=== PATIENT | male | born 1960 | race Caucasian/White ===

== ENCOUNTER 2017-08-17 13:53 | Emergency (ER) | payer MEDICARE ==
[~2017-08-17] VITALS: Ht 167.6 cm; Wt 115.7 kg
[~2017-08-17 13:53] MED LIST: LISINOPRIL 20 MG TABLET PO ONE
--- NOTE | 2017-08-17 14:15 | PHYS DOC ---
Adult General Chief Complaint Chief Complaint: Neck Pain [facility] HPI 57-year-old male presents with neck pain that radiates down to his chest. The patient has had intermittent neck pain, left shoulder "tingling" for the last week and a half. The patient thought it might be starting up in his jaw where he has known bad teeth. He went to his dentist today. His dentist was concerned his blood pressure is very high and the symptoms sound concerning so he sent him to the ED. Patient states some upper left chest discomfort, but does not describe it as heaviness or pain. He denies shortness of breath or diaphoresis. He has no known cardiac history. He does know that he has high blood pressure but has not been on medication "for years". He denies any recent trauma to the neck or left arm. Review of Systems Review of Systems Constitutional: Denies fever or chills [] Eyes: Denies change in visual acuity, redness, or eye pain [] HENT: Has "sore" teeth that need removed on the left [] Respiratory: Denies cough or shortness of breath [] Cardiovascular: No additional information not addressed in HPI [] GI: Denies abdominal pain, nausea, vomiting, bloody stools or diarrhea [] : Denies dysuria or hematuria [] Musculoskeletal: Denies back pain or joint pain [] Integument: Denies rash or skin lesions [] Neurologic: Denies headache, focal weakness or sensory changes [] Endocrine: Denies polyuria or polydipsia [] All other systems were reviewed and found to be within normal limits, except as documented in this note. Physical Exam Physical Exam Constitutional: Well developed, well nourished, no acute distress, non-toxic appearance. [] HENT: Normocephalic, atraumatic, bilateral external ears normal, oropharynx moist, several upper left teeth with decay, several molars removed in all four quadrants [] Eyes: PERRLA, EOMI, conjunctiva normal, no discharge. [] Neck: Normal range of motion, muscle spasm of the paracervical muscles, worse on left. [] Cardiovascular:Heart rate regular rhythm, no murmur [] Lungs & Thorax: Bilateral breath sounds clear to auscultation [] Abdomen: Bowel sounds normal, soft, no tenderness, no masses, no pulsatile masses. [] Skin: Warm, dry, no erythema, no rash. [] Back: No tenderness, no CVA tenderness. [] Extremities: No tenderness, no cyanosis, no clubbing, ROM intact, no edema. [] Neurologic: Alert and oriented X 3, normal motor function, normal sensory function, no focal deficits noted. [] Psychologic: Affect normal, judgement normal, mood normal. [] EKG EKG [] Radiology/Procedures Radiology/Procedures C-SPINE 2 OR 3 VIEWS Clinical Indication: NECK PAIN Comparison: None. Findings: The cervical spine is visualized to the level of C7 on lateral view. There is mild grade 1 anterolisthesis of C4 on C5. The alignment is otherwise maintained. There is degenerative endplate spurring and disc space narrowing of C6/C7. Facet joints are intact, mildly hypertrophic. Straightening of normal cervical lordosis may be positional or due to muscle spasm. There is no evidence of acute fracture. The lateral masses are symmetric. No prevertebral soft tissue swelling is identified. Visualized lung apices are clear. IMPRESSION: No acute fracture or malalignment. Electronically signed by: Jorge Alberto Mesa MD (08/17/2017 4:27 PM) [id number] [] INDICATION: Chest pain. TECHNIQUE: Two-view chest radiograph was obtained. Comparison is not available. FINDINGS: The lungs are clear. There is no pleural effusion. The heart is not enlarged and there is no heart failure. There are mild degenerative changes in the spine. IMPRESSION: No acute thoracic findings. Electronically signed by: To Coreas MD (08/17/2017 3:57 PM) Course & Med Decision Making Course & Med Decision Making Pertinent Labs and Imaging studies reviewed. (See chart for details) The patients pain does not appear to be cardiac. His cervical spine does have degeneration and he may be having nerve impingement and muscle spasm causing the neck and shoulder pain. I will place him on muscle relaxer and advised to follow-up with his PCP for blood pressure medication. The patient's labs were remarkable for a significantly elevated blood sugar over 400. His anion gap was normal. The patient has not been diagnosed as diabetic previously. I have advised that he see his PCP immediately about this as well. I will start him on Metformin in the ED. Given his high blood pressure, we gave the patient metoprolol 5mg IV as well as starting him on Lisinopril 20 mg oral. This improved his blood pressure slightly. He is asymptomatic with this blood pressure. I again stressed the importance of follow-up with his PCP this week. Patient stated he will make the appointment tomorrow. [] [place] Disclaimer Dragon Disclaimer This electronic medical record was generated, in whole or in part, using a voice recognition dictation system. Departure Departure: Referrals: PCP,STEPHON (PCP) Scripts Lisinopril (LISINOPRIL) 20 Mg Tablet 1 TAB PO DAILY, #30 TAB 5 Refills Prov: PRASHANTH MONTE DO 08/17/17 Metformin Hcl (METFORMIN HCL) 1,000 Mg Tablet 1 TAB PO BID, #60 TAB 5 Refills Prov: PRASHANTH MONTE DO 08/17/17 PRASHANTH MONTE DO August 17, 2017 14:15
[2017-08-17 14:23] LABS: BASO # 0.1 x10^3/uL (0.0-0.2); BASO % 1 % (0-3); EOS # 0.3 x10^3/uL (0.0-0.7); EOS % 3 % (0-3); HEMOGLOBIN 15.2 g/dL (13.0-17.5); LYMPH # 3.3 x10^3/uL (1.0-4.8); LYMPH % 32 % (24-48); MEAN CORPUSCULAR HEMOGLOBIN 29 pg (25-35); MEAN CORPUSCULAR HGB CONC 35 g/dL (31-37); MEAN CORPUSCULAR VOLUME 84 fL (79-100); MONO # 0.5 x10^3/uL (0.0-1.1); MONO % 5 % (0-9); NEUT # 5.8 x10^3uL (1.8-7.7); NEUT % 58 % (31-73); PLATELET COUNT 168 x10^3/uL (140-400); RED BLOOD COUNT 5.26 x10^6/uL (4.30-5.70); RED CELL DISTRIBUTION WIDTH 13.7 % (11.5-14.5); WHITE BLOOD COUNT 10.1 x10^3/uL (4.0-11.0)
[2017-08-17 14:37] LABS: BACTERIA,URINE 0 /HPF (0-FEW); BILIRUBIN,URINE NEG (NEG); CLARITY,URINE CLEAR; COLOR,URINE YELLOW; GLUCOSE,URINE 500 mg/dL (NEG); NITRITE,URINE NEG (NEG); RBC,URINE OCC /HPF (0-2); SQUAMOUS EPITHELIAL CELL,UR FEW /LPF; UROBILINOGEN,URINE 0.2 mg/dL (0.2 mg/dL); WBC,URINE OCC /HPF (0-4)
[2017-08-17 14:37] LABS: ALBUMIN 3.3 g/dL (3.4-5.0); ALBUMIN/GLOBULIN RATIO 0.8 (1.0-1.7); CALCIUM 8.5 mg/dL (8.5-10.1); CREATININE 1.2 mg/dL (0.7-1.3); POTASSIUM 4.1 mmol/L (3.5-5.1); TOTAL BILIRUBIN 0.6 mg/dL (0.2-1.0); TOTAL PROTEIN 7.7 g/dL (6.4-8.2)
--- NOTE | 2017-08-17 15:37 | EKG ---
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
[2017-08-17] MEDS ORDERED: IV NORMAL SALINE 1,000ML 1,000 ML IV ONE (16:00)
--- NOTE | 2017-08-17 16:00 | RAD ---
INDICATION: Chest pain. TECHNIQUE: Two-view chest radiograph was obtained. Comparison is not available. FINDINGS: The lungs are clear. There is no pleural effusion. The heart is not enlarged and there is no heart failure. There are mild degenerative changes in the spine. IMPRESSION: No acute thoracic findings. Electronically signed by: To Coreas MD (08/17/2017 3:57 PM) [id number]
--- NOTE | 2017-08-17 16:30 | RAD ---
C-SPINE 2 OR 3 VIEWS Clinical Indication: NECK PAIN Comparison: None. Findings: The cervical spine is visualized to the level of C7 on lateral view. There is mild grade 1 anterolisthesis of C4 on C5. The alignment is otherwise maintained. There is degenerative endplate spurring and disc space narrowing of C6/C7. Facet joints are intact, mildly hypertrophic. Straightening of normal cervical lordosis may be positional or due to muscle spasm. There is no evidence of acute fracture. The lateral masses are symmetric. No prevertebral soft tissue swelling is identified. Visualized lung apices are clear. IMPRESSION: No acute fracture or malalignment. Electronically signed by: Jorge Alberto Mesa MD (08/17/2017 4:27 PM) [id number]
[2017-08-17] MEDS ORDERED: METF10003 PO (17:55)
[2017-08-17] MEDS ORDERED: LISI-334 PO (17:55)
[2017-08-17] MEDS ORDERED: METOPROLOL TARTRATE 5 MG/5 ML VIAL. IV ONE (18:00)
[2017-08-17] MEDS ORDERED: metFORMIN 500 MG TABLET PO ONE (18:00)
[2017-08-17 19:15] VITALS: BP 177/108
== END 2017-08-17 19:21 | disposition home or self-care (01) ==
LOC: ER 13:53
DX: M54.2 Cervicalgia (principal); M25.512 Pain in left shoulder; R07.89 Other chest pain; R20.2 Paresthesia of skin
CPT/HCPCS: 36415; 71046; 72040; 80053; 81001; 84484; 85025; 93005; 96374; 99285; J3490; J7030

== ENCOUNTER 2017-10-25 01:13 | Emergency (ER) | payer MEDICARE ==
[~2017-10-25] VITALS: Ht 167.6 cm; Wt 115.7 kg
[~2017-10-25 01:13] MED LIST changes: +LISI-334 PO; -LISINOPRIL 20 MG TABLET PO ONE; +METF10003 PO
[2017-10-25 01:15] VITALS: BP 158/96
--- NOTE | 2017-10-25 01:17 | ED.ADGEN ---
Past History Past Medical History: Anxiety, Depression, Hypertension Past Surgical History: Cholecystectomy, Other Alcohol Use: Sober Drug Use: None Adult General Chief Complaint Chief Complaint "... I got this hair cut the other day... and couple days after I noticed I had a sore spot... and then it started getting more sore.. and draining...".." HPI HPI Patient is a 57 year old male who presents with above hx and complaints Cellulitis posterior Lt. side scalp. Central area 2 cm with drainage. Does have surrounding erythema and nuchal line adenopathy . Patient states his sugars have been somewhat elevated. Patient did eat just before he came in place expect sugars to be hive recheck it. Patient has been compliant with his diabetic meds. No recent travel. No specific ill contacts. Patient does not remember when his last tetanus was done. Patient normally follows with Dr. Bower. Review of Systems Review of Systems Constitutional: Denies fever or chills [] Eyes: Denies change in visual acuity, redness, or eye pain [] HENT: Denies nasal congestion or sore throat [] Respiratory: Denies cough or shortness of breath [] Cardiovascular: No additional information not addressed in HPI [] GI: Denies abdominal pain, nausea, vomiting, bloody stools or diarrhea [] : Denies dysuria or hematuria [] Musculoskeletal: Denies back pain or joint pain [] Integument: Denies rash or skin lesions []complaints of cellulitis on scalp as per history of present illness Neurologic: Denies headache, focal weakness or sensory changes [] Endocrine: Denies polyuria or polydipsia [] All other systems were reviewed and found to be within normal limits, except as documented in this note. Family History Family History Noncontributory Current Medications Current Medications Current Medications Medications (Trade) Dose Ordered Sig/[facility] Start Time Stop Time Status Last Admin Dose Admin Ceftriaxone Sodium (Rocephin Im) 1 gm 1X ONCE 10/25/17 01:45 10/25/17 01:46 DC 10/25/17 01:45 1 GM Ceftriaxone Sodium (Rocephin) 1 gm STK-MED ONCE 10/25/17 01:39 10/25/17 01:40 DC Tetanus/ Diphtheria Toxoids Adsorbed (Tenivac Vial) 0.5 ml STK-MED ONCE 10/25/17 01:39 10/25/17 01:40 DC Trimethoprim/ Sulfamethoxazole (Bactrim Ds) 1 tab STK-MED ONCE 10/25/17 01:39 10/25/17 01:40 DC Allergies Allergies Allergies Coded Allergies Type Severity Reaction Last Updated Verified No Known Drug Allergies 10/25/17 No Physical Exam Physical Exam Constitutional: Mild distress, non-toxic appearance. [] HENT: Normocephalic, atraumatic, bilateral external ears normal, oropharynx moist, no oral exudates, nose normal. Area of cellulitis left posterior scalp as per history of present illness Eyes: PERRLA, EOMI, conjunctiva normal, no discharge. [] Glasses Neck: Normal range of motion, no tenderness, supple, no stridor. [] Cardiovascular:Heart rate regular rhythm, no murmur [] Lungs & Thorax: Bilateral breath sounds equal apexes and a few scattered wheezes on auscultation [] Abdomen: Bowel sounds normal, soft, no tenderness, no masses, no pulsatile masses. Obese. Old surgical scar. Skin: Warm, dry, no erythema, no rash. [] Back: No tenderness, no CVA tenderness. [] Extremities: No tenderness, no cyanosis, no clubbing, ROM intact, no edema. [] Neurologic: Alert and oriented X 3, normal motor function, normal sensory function, no focal deficits noted. [] Psychologic: Affect anxious., judgement normal, mood normal. [] Current Patient Data Vital Signs Vital Signs Date Time Temp Pulse Resp B/P (MAP) Pulse Ox O2 Delivery O2 Flow Rate FiO2 10/25/17 01:15 97.7 64 20 96 Room Air EKG EKG [] Radiology/Procedures Radiology/Procedures [] Course & Med Decision Making Course & Med Decision Making Pertinent Labs and Imaging studies reviewed. (See chart for details). She wore scalp 4 times a day as soap and water. Apply Polysporin and massage into the area cellulitis 4 times a day. Patient to take Bactrim DS twice day for 7 days. Patient follow-up primary care. Patient monitor closely his glucose levels. Patient return of any concerns. [] Final Impression Final Impression 1. Cellulitis 2. Diabetes 3. HTN[] Dragon Disclaimer Dragon Disclaimer This electronic medical record was generated, in whole or in part, using a voice recognition dictation system. THA CASILLAS MD Oct 25, 2017 01:17
[2017-10-25] MEDS ORDERED: SULF1TAB24 PO (01:32)
[2017-10-25] MEDS ORDERED: cefTRIAXone SODIUM 1 GM VIAL IV ONE (01:39)
[2017-10-25] MEDS ORDERED: SMZ/TMP 800/160MG TABLET. PO ONE ×2 (01:39→01:45)
[2017-10-25] MEDS ORDERED: TETANUS AND DIPHTHERIA TOX/PF 0.5 ML VIAL. VAX IM ONE ×2 (01:39→01:45)
[2017-10-25] MEDS ORDERED: cefTRIAXone IM 1 GM VIAL IM ONE (01:45)
== END 2017-10-25 02:05 | disposition home or self-care (01) ==
LOC: ER 01:13
DX: L03.811 Cellulitis of head [any part, except face] (principal); E11.9 Type 2 diabetes mellitus without complications; I10 Essential (primary) hypertension; F41.9 Anxiety disorder, unspecified; F32.9 Major depressive disorder, single episode, unspecified
CPT/HCPCS: 90471; 90714; 96372; 99284; J0696

== ENCOUNTER 2018-07-07 13:29 | Inpatient (IN) | payer MEDICARE, OTHER ==
[~2018-07-07] VITALS: Ht 167.6 cm; Wt 104.0 kg
[~2018-07-07 13:29] MED LIST changes: -METF10003 PO; +METF10007 PO; +SULF1TAB24 PO
[2018-07-07] MEDS ORDERED: IV NORMAL SALINE 1,000ML 1,000 ML IV SCH (13:48)
[2018-07-07 13:58] LABS: BASO % 0 % (0-3); EOS # 0.2 x10^3/uL (0.0-0.7); EOS % 2 % (0-3); HEMATOCRIT 47.4 % (39.0-53.0); HEMOGLOBIN 16.6 g/dL (13.0-17.5); LYMPH # 3.4 x10^3/uL (1.0-4.8); LYMPH % 34 % (24-48); MEAN CORPUSCULAR HEMOGLOBIN 29 pg (25-35); MEAN CORPUSCULAR HGB CONC 35 g/dL (31-37); MEAN CORPUSCULAR VOLUME 82 fL (79-100); MONO # 0.5 x10^3/uL (0.0-1.1); MONO % 5 % (0-9); NEUT % 59 % (31-73); PLATELET COUNT 204 x10^3/uL (140-400); RED BLOOD COUNT 5.78 x10^6/uL (4.30-5.70); RED CELL DISTRIBUTION WIDTH 13.2 % (11.5-14.5); WHITE BLOOD COUNT 10.2 x10^3/uL (4.0-11.0)
--- NOTE | 2018-07-07 14:04 | PHYS DOC ---
Past History Past Medical History: Arthritis, Diabetes, DVT, Gallstones, High Cholesterol, Hypertension, Other Past Surgical History: Cholecystectomy, Tonsillectomy, Other Alcohol Use: None Drug Use: None Adult General Chief Complaint Chief Complaint: DIZZY/LIGHT HEADED HPI HPI Patient is a 58 year old male who presents with complaint of dizziness. Patient states the symptoms started 2 days ago. Patient states that he has been having recurrent episodes of feeling dizzy and unstable on his feet. He started having a worsening episode today while working on his friend's car. States that yesterday he also had associated chest pain with this dizziness but denies chest pain currently. History of hypertension and Type 2 diabetes mellitus. No previous known history of coronary artery disease. No recent stress testing. Has had mild shortness of breath but no shortness breath currently. No known sick contacts. No fever. Has not taken any medications. States that his blood sugars have been consistently running about 300 over the past several weeks. Review of Systems Review of Systems Constitutional: Denies fever or chills [] Eyes: Denies change in visual acuity, redness, or eye pain [] HENT: Denies nasal congestion or sore throat [] Respiratory: Occasional shortness of breath, denies cough[] Cardiovascular: Chest pain yesterday, denies edema[] GI: Denies abdominal pain, nausea, vomiting, bloody stools or diarrhea [] : Denies dysuria or hematuria [] Musculoskeletal: Chronic neck pain[] Integument: Denies rash or skin lesions [] Neurologic: Dizziness, denies focal weakness or sensory changes [] All other systems were reviewed and found to be within normal limits, except as documented in this note. Current Medications Current Medications Current Medications Medications (Trade) Dose Ordered Sig/[facility] Start Time Stop Time Status Last Admin Dose Admin Sodium Chloride 1,000 ml @ 1,000 mls/hr Q1H 07/07/18 13:48 07/07/18 14:47 Allergies Allergies Allergies Coded Allergies Type Severity Reaction Last Updated Verified No Known Drug Allergies 10/25/17 No Physical Exam Physical Exam Constitutional: Alert, afebrile, no acute distress. [] HENT: Normocephalic, atraumatic, bilateral external ears normal, oropharynx moist, no oral exudates, nose normal. [] Eyes: PERRLA, EOMI, conjunctiva normal, no discharge. [] Neck: Normal range of motion, no tenderness, supple, no stridor. [] Cardiovascular: Tachycardia, regular rhythm, no murmur [] Lungs & Thorax: Bilateral breath sounds clear to auscultation [] Abdomen: Bowel sounds normal, soft, no tenderness, no masses, no pulsatile masses. [] Skin: Warm, dry, no erythema, no rash. [] Back: No tenderness, no CVA tenderness. [] Extremities: No tenderness, no cyanosis, no clubbing, ROM intact, no edema. [] Neurologic: Alert and oriented X 3, normal motor function, normal sensory function, no focal deficits noted. [] Current Patient Data Vital Signs Vital Signs Date Time Temp Pulse Resp B/P (MAP) Pulse Ox O2 Delivery O2 Flow Rate FiO2 07/07/18 13:32 98.2 90 18 97 Room Air Lab Results Laboratory Tests Test 07/07/18 13:38 Glucose (Fingerstick) 311 mg/dL (70-99) H EKG EKG Interpreted by me: Heart rate 88, sinus rhythm, normal intervals, leftward axis , no acute ST/T-wave abnormalities present[] Radiology/Procedures Radiology/[place] [address] IMAGING REPORT Signed PATIENT: GILMAR SAUCEDO ACCOUNT: [id number] : 1960 LOCATION: ER AGE: 58 SEX: M EXAM STATUS: REG ER ORD. PHYSICIAN: VERONIQUE ASIF MD REASON: dizziness PROCEDURE: CT HEAD WO CONTRAST Examination: CT HEAD WO CONTRAST History: DIZZINESS Comparison/Correlation: None Findings: Axial images of the head were obtained without contrast. Atrophy is present. No intracranial hemorrhage, midline shift, or mass effect. Globes and optic nerves are unremarkable. Ventricles are normal size. Bony structures are unremarkable. Impression: Atrophy. No acute process. PQRS Compliance Statement: One or more of the following individualized dose reduction techniques were utilized for this examination: 1. Automated exposure control 2. Adjustment of the mA and/or kV according to patient size 3. Use of iterative reconstruction technique Electronically signed by: Tristan Gonsalez MD (07/07/2018 2:13 PM) [facility] DICTATED AND SIGNED BY: TRISTAN GONSALEZ MD DATE: 07/07/181412 CC: VERONIQUE ASIF MD; FABIOLA HERNANDEZ ~ [address] [address] IMAGING REPORT Signed PATIENT: GILMAR SAUCEDO ACCOUNT: [id number] : 1960 LOCATION: ER AGE: 58 SEX: M EXAM STATUS: REG ER ORD. PHYSICIAN: VERONIQUE ASIF MD REASON: dizziness, chest pain PROCEDURE: PORTABLE CHEST 1V PORTABLE CHEST 1V Clinical indications: DIZZINESS and chest pain COMPARISON: August 17, 2017. Findings: No acute lung infiltrate or pleural effusion or pulmonary edema or lung mass or pneumothorax is seen. The heart size, pulmonary vasculature, mediastinum and both elle are unremarkable. Impression: No acute radiographic abnormality is seen. Electronically signed by: Omar Rees MD (07/07/2018 2:16 PM) [facility] DICTATED AND SIGNED BY: OMAR REES MD DATE: 07/07/181415 CC: VERONIQUE ASIF MD; FABIOLA HERNANDEZ ~ [] Course & Med Decision Making Course & Med Decision Making Pertinent Labs and Imaging studies reviewed. (See chart for details) Patient treated with IV fluids in the emergency department. Blood work shows elevated blood sugar. Initial cardiac enzymes negative. Given patient's age and symptoms of near syncope with associated chest pain, the patient will need admission to the hospital for further monitoring and cardiac evaluation. I spoke with Dr. Tomlinson who accepted care of patient in hospital. Dragon Disclaimer Dragon Disclaimer This electronic medical record was generated, in whole or in part, using a voice recognition dictation system. Departure Departure: Impression: Primary Impression: Near syncope Additional Impressions: Chest pain Hypertension Type 2 diabetes mellitus Disposition: ADMITTED INPATIENT Admitting Physician: Avel Tomlinson Condition: STABLE Referrals: FABIOLA HERNANDEZ (PCP) Problem Qualifiers Additional Impressions: Chest pain Chest pain type: unspecified Qualified Codes: R07.9 - Chest pain, unspecified Hypertension Hypertension type: essential hypertension Qualified Codes: I10 - Essential ( primary) hypertension Type 2 diabetes mellitus Diabetes mellitus skilled nursing insulin use: unspecified terminal superintendent insulin use status Diabetes mellitus complication status: with hyperglycemia Qualified Codes: E11.65 - Type 2 diabetes mellitus with hyperglycemia VERONIQUE ASIF MD Jul 07, 2018 14:04
--- NOTE | 2018-07-07 14:16 | RAD ---
Examination: CT HEAD WO CONTRAST History: DIZZINESS Comparison/Correlation: None Findings: Axial images of the head were obtained without contrast. Atrophy is present. No intracranial hemorrhage, midline shift, or mass effect. Globes and optic nerves are unremarkable. Ventricles are normal size. Bony structures are unremarkable. Impression: Atrophy. No acute process. PQRS Compliance Statement: One or more of the following individualized dose reduction techniques were utilized for this examination: 1. Automated exposure control 2. Adjustment of the mA and/or kV according to patient size 3. Use of iterative reconstruction technique Electronically signed by: Tristan Pappas MD (07/07/2018 2:13 PM) [facility]
--- NOTE | 2018-07-07 14:19 | RAD ---
PORTABLE CHEST 1V Clinical indications: DIZZINESS and chest pain COMPARISON: August 17, 2017. Findings: No acute lung infiltrate or pleural effusion or pulmonary edema or lung mass or pneumothorax is seen. The heart size, pulmonary vasculature, mediastinum and both elle are unremarkable. Impression: No acute radiographic abnormality is seen. Electronically signed by: Miguel Rees MD (07/07/2018 2:16 PM) [facility]
[2018-07-07 14:28] LABS: ALBUMIN 3.7 g/dL (3.4-5.0); ALBUMIN/GLOBULIN RATIO 0.8 (1.0-1.7); CALCIUM 9.2 mg/dL (8.5-10.1); CREATININE 1.2 mg/dL (0.7-1.3); GFR 61.8; MAGNESIUM 1.7 mg/dL (1.8-2.4); POTASSIUM 3.9 mmol/L (3.5-5.1); TOTAL BILIRUBIN 0.9 mg/dL (0.2-1.0); TOTAL PROTEIN 8.6 g/dL (6.4-8.2)
[2018-07-07 14:48] LABS: BACTERIA,URINE FEW /HPF (0-FEW); BILIRUBIN,URINE NEG (NEG); CLARITY,URINE HAZY; COLOR,URINE AMBER; GLUCOSE,URINE >=1000 mg/dL (NEG); NITRITE,URINE NEG (NEG); RBC,URINE 0 /HPF (0-2); UROBILINOGEN,URINE 1 mg/dL (0.2 mg/dL); WBC,URINE OCC /HPF (0-4)
[2018-07-07 14:49] LABS: SQUAMOUS EPITHELIAL CELL,UR FEW /LPF
[2018-07-07] MEDS ORDERED: ONDANSETRON PF 4 MG/2 ML VIAL. IV PRN (15:30)
[2018-07-07 17:30] VITALS: BP 157/96
[2018-07-07] MEDS ORDERED: LISI40TA PO (17:42)
[2018-07-07] MEDS ORDERED: DEXTROSE 50% 25 GM / 50ML DISP.SYRIN. IV PRN (17:45)
--- NOTE | 2018-07-07 18:08 | CONS ---
DATE OF CONSULTATION: 07/07/2018 REASON FOR CONSULTATION: Near syncope and chest pain. HISTORY OF PRESENT ILLNESS: The patient is a pleasant 58-year-old man with a past medical history of hypertension, diabetes and bipolar disorder, who apparently was in usual state of health up until about a week ago and he has had progressive increasing lightheadedness and dizziness. He had 1 or 2 episodes of chest pain associated with this. Denies any dyspnea, true syncope, orthopnea, PND or lower extremity edema. No nausea, vomiting, diarrhea, fevers or chills. He denies any recent medication changes. No other issues at home, otherwise with activity. No prior cardiac testing is notable. Upon arrival to the ER, he was noted to have a normal EKG and blood sugar was slightly elevated and in this setting was admitted for further evaluation and treatment. He reports compliance with his medications; otherwise. PAST MEDICAL HISTORY: As noted above. SOCIAL HISTORY: No tobacco or drug use. He used to work at the [employer]. He lives with his son. He occasionally drinks alcohol. FAMILY HISTORY: Noncontributory. ALLERGIES: No known drug allergies. CURRENT CARDIOVASCULAR MEDICATIONS: Lisinopril 20 mg daily. PHYSICAL EXAMINATION: VITAL SIGNS: Afebrile, 79, 18, 168/94, 97% on room air. GENERAL: He is alert and oriented, no acute distress. HEAD AND NECK: Unremarkable. CARDIAC: Regular rate and rhythm without any murmurs, rubs or gallops. LUNGS: Clear to auscultation bilaterally. ABDOMEN: Soft, nontender, nondistended, obese. NEUROLOGIC: No focal deficits. MUSCULOSKELETAL: No trauma. EXTREMITIES: No clubbing, cyanosis or edema. 2+ radial and dorsalis pedis pulses. DIAGNOSTIC STUDIES: Hemoglobin, platelets, creatinine and initial cardiac enzymes are negative. Glucose is elevated at 311. Chest x-ray and head CT are unremarkable. EKG is per report grossly unremarkable. Not available for review at this time. IMPRESSION: 1. Lightheadedness in the setting of a long-term history of diabetes and elevated blood sugars with possible dehydration, differential diagnosis also includes arrhythmias. 2. Chest pain appears to be atypical, but given his risk factors, cannot rule out a significant coronary artery disease, although less likely based on negative cardiac biomarkers and EKG. RECOMMENDATIONS: Continue serial enzymes and obtain a monitoring overnight. If no acute events can be safely discharged tomorrow on Imdur therapy and aspirin as well as a low dose statin along with his LILO inhibitor, we will plan for outpatient stress testing. Thank you for this consultation. YONATHAN DILL MD DR: ELENA/juma JOB#: [id number] / [id number]
[2018-07-07] MEDS: IV NORMAL SALINE 1,000ML 1,000 ML IV SCH (18:13)
[2018-07-07 19:33] VITALS: BP 131/83
[2018-07-07] MEDS: ACETAMINOPHEN 325 MG TABLET PO PRN (19:49)
[2018-07-07 22:53] VITALS: BP 143/89
[2018-07-08] MEDS: IV NORMAL SALINE 1,000ML 1,000 ML IV SCH ×2 (02:13→08:20)
[2018-07-08 05:53] VITALS: BP 144/93
[2018-07-08] MEDS: ACETAMINOPHEN 325 MG TABLET PO PRN (05:58)
[2018-07-08 06:15] LABS: BASO # 0.1 x10^3/uL (0.0-0.2); BASO % 1 % (0-3); EOS # 0.2 x10^3/uL (0.0-0.7); EOS % 3 % (0-3); HEMATOCRIT 41.6 % (39.0-53.0); HEMOGLOBIN 14.4 g/dL (13.0-17.5); LYMPH # 3.1 x10^3/uL (1.0-4.8); LYMPH % 41 % (24-48); MEAN CORPUSCULAR HEMOGLOBIN 29 pg (25-35); MEAN CORPUSCULAR HGB CONC 35 g/dL (31-37); MEAN CORPUSCULAR VOLUME 83 fL (79-100); MONO # 0.4 x10^3/uL (0.0-1.1); MONO % 6 % (0-9); NEUT # 3.6 x10^3uL (1.8-7.7); NEUT % 49 % (31-73); PLATELET COUNT 158 x10^3/uL (140-400); RED BLOOD COUNT 4.99 x10^6/uL (4.30-5.70); RED CELL DISTRIBUTION WIDTH 12.8 % (11.5-14.5); WHITE BLOOD COUNT 7.4 x10^3/uL (4.0-11.0)
[2018-07-08 06:23] LABS: CALCIUM 8.2 mg/dL (8.5-10.1); CREATININE 0.9 mg/dL (0.7-1.3); GFR 86.1
--- NOTE | 2018-07-08 06:59 | EKG ---
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
[2018-07-08] MEDS: INSULIN LISPRO 300 UNITS/3 ML INSULN.PEN. SQ SCH ×2 (08:23→12:07)
--- NOTE | 2018-07-08 08:40 | RAD ---
EXAMINATION: VENOUS LOWER EXTREMITY LEFT HISTORY: COMPARISON/CORRELATION: None FINDINGS: Left lower extremity duplex venous ultrasound exam was performed. Right common femoral vein was also imaged. Grayscale, color Doppler, and spectral Doppler imaging was performed. Compression and augmentation was performed. The left common femoral vein, superficial femoral vein, popliteal vein, and greater saphenous vein are normal with no evidence of deep venous thrombus. Normal compressibility and augmentation is evident. Right common femoral vein is unremarkable. IMPRESSION: Normal left lower extremity duplex ultrasound exam. Electronically signed by: Tristan Pappas MD (07/08/2018 8:37 AM) [facility]
[2018-07-08] MEDS ORDERED: LISINOPRIL 20 MG TABLET PO SCH (09:00)
--- NOTE | 2018-07-08 09:19 | PDOC ---
PROGRESS NOTES Diagnosis Problem Problems Medical Problems: (1) Chest pain Status: Acute (2) Hypertension Status: Acute (3) Near syncope Status: Acute (4) Type 2 diabetes mellitus Status: Acute Assessment Problems Medical Problems: (1) Chest pain Status: Acute (2) Hypertension Status: Acute (3) Near syncope Status: Acute (4) Type 2 diabetes mellitus Status: Acute 1. Lightheadedness - no arrhythmias. 2. Chest pain -atypical. NM ruled out. continue lisinopril. add daily aspirin , statin and imdur and plan for outpatient MPI. 3. hypertension - continue ACEI, add nitrate, monitor outpatient 4. diabetes mellitus - per pcp Chest pain, mi ruled out. plan for OP MPI Subjective no new complaints. Feels "great", "ready to go home" Objective Vital Signs Date Time Temp Pulse Resp B/P (MAP) Pulse Ox O2 Delivery O2 Flow Rate FiO2 07/08/18 08:19 66 144/93 07/08/18 08:00 Room Air 07/08/18 05:53 97.5 20 93 Intake and Output 07/08/18 07:00 Intake Total 3253 ml Balance 3253 ml Intake Oral 720 ml IV Total 2533 ml # Voids 2 Physical Exam gen: A+O, NAD CV: RRR, No S3S4 Lungs: clear Abd: +bowel sounds Ext: no edema, +pulses Review of Relevant I have reviewed the following items ayaka (where applicable) has been applied. Labs Laboratory Tests Test 07/07/18 13:38 07/07/18 13:42 07/07/18 14:20 07/07/18 17:50 Glucose (Fingerstick) 311 mg/dL (70-99) White Blood Count 10.2 x10^3/uL (4.0-11.0) Red Blood Count 5.78 x10^6/uL (4.30-5.70) Hemoglobin 16.6 g/dL (13.0-17.5) Hematocrit 47.4 % (39.0-53.0) Mean Corpuscular Volume 82 fL (79-100) Mean Corpuscular Hemoglobin 29 pg (25-35) Mean Corpuscular Hemoglobin Concent 35 g/dL (31-37) Red Cell Distribution Width 13.2 % (11.5-14.5) Platelet Count 204 x10^3/uL (140-400) Neutrophils (%) (Auto) 59 % (31-73) Lymphocytes (%) (Auto) 34 % (24-48) Monocytes (%) (Auto) 5 % (0-9) Eosinophils (%) (Auto) 2 % (0-3) Basophils (%) (Auto) 0 % (0-3) Neutrophils # (Auto) 6.0 x10^3uL (1.8-7.7) Lymphocytes # (Auto) 3.4 x10^3/uL (1.0-4.8) Monocytes # (Auto) 0.5 x10^3/uL (0.0-1.1) Eosinophils # (Auto) 0.2 x10^3/uL (0.0-0.7) Basophils # (Auto) 0.0 x10^3/uL (0.0-0.2) Sodium Level 135 mmol/L (136-145) Potassium Level 3.9 mmol/L (3.5-5.1) Chloride Level 100 mmol/L (98-107) Carbon Dioxide Level 24 mmol/L (21-32) Anion Gap 11 (6-14) Blood Urea Nitrogen 22 mg/dL (8-26) Creatinine 1.2 mg/dL (0.7-1.3) Estimated GFR (Cockcroft-Gault) 61.8 BUN/Creatinine Ratio 18 (6-20) Glucose Level 331 mg/dL (70-99) Calcium Level 9.2 mg/dL (8.5-10.1) Magnesium Level 1.7 mg/dL (1.8-2.4) Total Bilirubin 0.9 mg/dL (0.2-1.0) Aspartate Amino Transf (AST/SGOT) 33 U/L (15-37) Alanine Aminotransferase (ALT/SGPT) 59 U/L (16-63) Alkaline Phosphatase 83 U/L (46-116) Creatine Kinase 47 U/L (39-308) Creatine Kinase MB (Mass) 0.7 ng/mL (0.0-3.6) Creatine Kinase MB Relative Index 1.5 % (0-4) Troponin I Quantitative < 0.017 ng/mL (0-0.055) LD-Ile-I-Type Natriuretic Peptide 48 pg/mL (0-124) Total Protein 8.6 g/dL (6.4-8.2) Albumin 3.7 g/dL (3.4-5.0) Albumin/Globulin Ratio 0.8 (1.0-1.7) Urine Collection Type Unknown Urine Color [place] Urine Clarity Hazy Urine pH 5.0 Urine Specific Eldred 1.025 Urine Protein 100 mg/dl (NEG-TRACE) Urine Glucose (UA) >=1000 mg/dL (NEG) Urine Ketones (Stick) Trace mg/dL (NEG) Urine Blood Neg (NEG) Urine Nitrite Neg (NEG) Urine Bilirubin Neg (NEG) Urine Urobilinogen Dipstick 1 mg/dL (0.2 mg/dL) Urine Leukocyte Esterase Neg (NEG) Urine RBC 0 /HPF (0-2) Urine WBC Occ /HPF (0-4) Urine Squamous Epithelial Cells Few /LPF Urine Bacteria Few /HPF (0-FEW) Urine Mucus Slight /LPF D-Dimer (Deirdre) 0.46 mg/L (0.00-0.50) Test 07/07/18 19:30 07/07/18 21:20 07/08/18 06:03 07/08/18 08:17 Troponin I Quantitative < 0.017 ng/mL (0-0.055) < 0.017 ng/mL (0-0.055) White Blood Count 7.4 x10^3/uL (4.0-11.0) Red Blood Count 4.99 x10^6/uL (4.30-5.70) Hemoglobin 14.4 g/dL (13.0-17.5) Hematocrit 41.6 % (39.0-53.0) Mean Corpuscular Volume 83 fL (79-100) Mean Corpuscular Hemoglobin 29 pg (25-35) Mean Corpuscular Hemoglobin Concent 35 g/dL (31-37) Red Cell Distribution Width 12.8 % (11.5-14.5) Platelet Count 158 x10^3/uL (140-400) Neutrophils (%) (Auto) 49 % (31-73) Lymphocytes (%) (Auto) 41 % (24-48) Monocytes (%) (Auto) 6 % (0-9) Eosinophils (%) (Auto) 3 % (0-3) Basophils (%) (Auto) 1 % (0-3) Neutrophils # (Auto) 3.6 x10^3uL (1.8-7.7) Lymphocytes # (Auto) 3.1 x10^3/uL (1.0-4.8) Monocytes # (Auto) 0.4 x10^3/uL (0.0-1.1) Eosinophils # (Auto) 0.2 x10^3/uL (0.0-0.7) Basophils # (Auto) 0.1 x10^3/uL (0.0-0.2) Sodium Level 138 mmol/L (136-145) Potassium Level 4.0 mmol/L (3.5-5.1) Chloride Level 106 mmol/L (98-107) Carbon Dioxide Level 23 mmol/L (21-32) Anion Gap 9 (6-14) Blood Urea Nitrogen 19 mg/dL (8-26) Creatinine 0.9 mg/dL (0.7-1.3) Estimated GFR (Cockcroft-Gault) 86.1 Glucose Level 269 mg/dL (70-99) Calcium Level 8.2 mg/dL (8.5-10.1) Glucose (Fingerstick) 279 mg/dL (70-99) Medications Current Medications Sodium Chloride 1,000 ml @ 1,000 mls/hr Q1H IV Last administered on 07/07/18at 13:57; Start 07/07/18 at 13:48; Stop 07/07/18 at 14:48; Status DC Ondansetron HCl (Zofran) 4 mg PRN Q4HRS PRN IV NAUSEA/VOMITING; Start 07/07/18 at 15:30; Stop 07/08/18 at 15:29 Sodium Chloride 1,000 ml @ 125 mls/hr Q8H IV Last administered on 07/08/18at 08 :20; Start 07/07/18 at 15:22; Stop 07/08/18 at 15:21 Acetaminophen (Tylenol) 650 mg PRN Q4HRS PRN PO FEVER Last administered on 07/08at 05:58; Start 07/07/18 at 15:30; Stop 07/08/18 at 15:29 Insulin Human Lispro (HumaLOG) 0-7 UNITS TIDWMEALS SQ Last administered on 07/08at 08:23; Start 07/08/18 at 08:00 Dextrose 12.5 gm PRN Q15MIN PRN IV SEE COMMENTS; Start 07/07/18 at 17:45 Lisinopril (Prinivil) 40 mg DAILY PO Last administered on 07/08/18at 08:19; Start 07/08/18 at 09:00 Active Scripts Active Metformin Hcl 1,000 Mg Tablet 1 Tab PO BID Reported Lisinopril 40 Mg Tablet 1 Tab PO DAILY Vitals/I & O Vital Sign - Last 24 Hours 07/07/18 07/07/18 07/07/18 07/07/18 13:32 13:50 14:40 15:10 Temp 98.2 Pulse 90 96 80 78 Resp 18 18 16 18 B/P (MAP) 140/54 (82) 149/93 (111) 145/92 (109) Pulse Ox 97 97 97 97 O2 Delivery Room Air Room Air Room Air Room Air 07/07/18 07/07/18 07/07/18 07/07/18 16:10 17:25 17:30 19:33 Temp 98.0 97.8 Pulse 79 76 80 Resp 18 20 24 B/P (MAP) 168/94 (118) 157/96 (116) 131/83 (99) Pulse Ox 97 98 94 O2 Delivery Room Air Room Air Room Air Room Air 07/07/18 07/08/18 07/08/18 07/08/18 22:53 05:53 08:00 08:19 Temp 97.6 97.5 Pulse 68 66 66 Resp 20 20 B/P (MAP) 143/89 (107) 144/93 (110) 144/93 Pulse Ox 96 93 O2 Delivery Room Air Room Air Room Air Intake and Output 07/07/18 07/07/18 07/08/18 15:00 23:00 07:00 Intake Total 1000 ml 360 ml 1893 ml Balance 1000 ml 360 ml 1893 ml DAE ARCINIEGA APRN Jul 08, 2018 09:19
[2018-07-08 11:12] VITALS: BP 137/86
[2018-07-08] MEDS ORDERED: ASPIRIN ENTERIC COATED 81 MG TABLET.DR. PO SCH (12:30)
[2018-07-08] MEDS ORDERED: ISOSORBIDE MONONITRATE ER 30 MG TAB.ER.24H PO SCH (12:30)
[2018-07-08] MEDS ORDERED: GABA600T PO (12:33)
[2018-07-08] MEDS ORDERED: GLIM1TAB PO (12:33)
[2018-07-08 12:59] VITALS: BP 137/86
--- NOTE | 2018-07-08 13:01 | HP ---
ADMIT DATE: 07/07/2018 HISTORY OF PRESENT ILLNESS: The patient is a 58-year-old male patient, who came to the Emergency Room complaining of dizziness. He stated that the symptoms started about 2 days ago, has been recurrent episode of feeling dizzy and unstable on his feet. He started having a worsening episode today while working in his friend's car. Yesterday he had also some chest pain with this dizziness, but denied any chest pain when he arrived to the Emergency Room. He is known to have hypertension and type 2 diabetes, but no previous history of coronary artery disease. No recent stress testing. He has mild shortness of breath, but no shortness of breath when he arrived. He has no fever and stated his blood sugars have been consistently running over 300 over the past several weeks. He was evaluated in the Emergency Room and his lab work showed that he has obviously hyperglycemia. His D-dimer was 0.46. Urinalysis showed large amount of glucose and large amount of protein. His EKG showed that he was in sinus rhythm with a heart rate of 88 with normal intervals and leftward axis, no acute ST-T changes and his first set of cardiac enzyme showed troponin to be less than 0.017 and therefore, the patient was admitted to do 2 more sets of cardiac enzymes and to consult the cardiology team. PAST MEDICAL HISTORY: Significant for hypertension, hyperlipidemia, type 2 diabetes, varicose vein involving his left leg. He has also osteoarthritis and probably diabetic neuropathy, benign prostatic hypertrophy. PAST SURGICAL HISTORY: Significant for right inguinal hernia repair, left rotator cuff repair, cholecystectomy, varicose vein stripping. He also has skin grafting to both lower extremities, has bilateral cataract extractions, tonsillectomy as well as colonoscopy. ALLERGIES: He has no known drug allergies. MEDICATIONS: He is on lisinopril 40 mg once a day and metformin 1000 mg p.o. b.i.d. FAMILY HISTORY: He has 2 brothers, one brother due to stroke. His other brother is alive at age of 68 and has diabetes mellitus, has 3 sisters, all younger and seemingly healthy. His father in his 70s due to myocardial infarction and mother in her late 70s, also again of myocardial infarction. SOCIAL HISTORY: He is , has 2 sons and 1 daughter. He never smoked. He drinks alcohol occasionally. He usually takes, drinks 2 beers once a week. 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 REVIEW OF SYSTEMS: The patient has bilateral cataract extraction, but denied any glaucoma or macular degeneration. Denied any earache, tinnitus or sensorineural deafness. Denied nosebleeds, stuffy nose or postnasal drip. Denied any sore throat, sore tongue, toothache, hoarseness of voice or difficulty swallowing. He said that he lost weight. He usually weighs about 260 and today's weight was 229. He did feel nauseous yesterday, but no vomiting, no diarrhea or constipation. No hematemesis, melena or hematochezia. Denied any dysuria, frequency, or hematuria. Did complain of nocturia. No chest pain when he arrived to the Emergency Room. Denied any diaphoresis. PHYSICAL EXAMINATION: GENERAL: On arrival to the Emergency Room, he looked well and was clearly in no apparent respiratory distress. No pallor, jaundice, cyanosis, or thyromegaly. No jugular venous distension. No lower limb edema. VITAL SIGNS: His heart rate was 90, blood pressure was 140/50, temperature was 98.2, respiratory rate was 18 and oxygen saturation was 97% on room air. HEAD, EYES, EARS, NOSE, and THROAT: Showed normocephalic, atraumatic. NECK: Supple. HEART: Showed normal first and second heart sounds. No gallop, rub or murmur. CHEST: Clear to auscultation. No crepitation or rhonchi. ABDOMEN: Distended, soft, nontender. NEUROLOGIC: He was awake, alert, responding appropriately. Cranial nerves intact. EXTREMITIES: He moves extremities without difficulty. He ambulates without assistance or assistive devices. LABORATORY DATA: In the Emergency Room, his lab work showed a white cell count of 10,200, hemoglobin 16.6, hematocrit 47.4, MCV 82 and platelet count of 204,000. His chemistry showed a serum sodium of 135, potassium 3.9, chloride 100, bicarbonate 24, anion gap of 11, BUN 22, creatinine 1.2, estimated GFR was 62 mL per minute. His glucose was 331, calcium was 9.2, magnesium was 1.7. Total bilirubin, AST, ALT, alkaline phosphatase were normal. His CK, CK-MB were normal. His troponin was less than 0.017. His total protein was 8.6, albumin was 3.7. His D-dimer was 0.46 mg and his urinalysis showed the urine was raudel, hazy with a pH of 5, specific gravity 1.025. There was a moderate amount of protein, large amount of glucose, trace of ketones. The urine was negative for blood, nitrite, bilirubin, leukocyte esterase. There were no rbc's, no wbc's and very few bacteria. He did have a CT scan of the head, which basically showed atrophy is present. No intracranial hemorrhage, midline shift, or mass effect. The globes and optic nerves are unremarkable. The ventricles are normal in size. The bony structures are unremarkable. His chest x-ray showed no acute radiographic abnormalities seen. He has had venous Doppler ultrasound of his lower extremity, which basically showed normal left lower extremity Doppler ultrasound examination. We will do 2 more sets of cardiac enzyme, consult the Cardiology. He probably needs obviously better control of his blood sugar. We did start him on insulin sliding scale while in the hospital. DIO GUERRERO MD DR: DOMINIC/juma JOB#: [id number] / [id number]
[2018-07-08] MEDS ORDERED: ATORVASTATIN CALCIUM 20 MG TABLET PO SCH (21:00)
--- NOTE | 2018-07-08 21:11 | DS ---
DATE OF DISCHARGE: 07/08/2018 HOSPITAL COURSE: The patient is a 58-year-old male patient, who came in yesterday. He has been complaining of progressive increasing lightheadedness and dizziness, has 1-2 episodes of chest pain associated with this. Denied any shortness of breath, true syncope. Denied any nausea, vomiting. His EKG was normal, blood sugar was elevated and was admitted to rule out myocardial infarction. He has 2 sets of cardiac enzymes that were negative and his 2 more sets of troponin were within normal limits. We will start him on IV fluid and also insulin. His blood sugar was suboptimally controlled on metformin and he did very did very well. He has no further episodes of nausea, vomiting. No episodes of dizziness or lightheadedness. He did complain of tingling and numbness in both feet and he was evaluated by the vice chair, who recommended outpatient stress test as he remained stable. Decision was made to discharge him home. I added Amaryl 2 mg twice a day to control his blood sugar as well as Neurontin for what seems to be diabetic peripheral neuropathy. PHYSICAL EXAMINATION: GENERAL: When I examined him this afternoon, he looked well and was clearly in no apparent respiratory distress. No pallor, jaundice, cyanosis, or thyromegaly. No jugular venous distension. No limb edema. VITAL SIGNS: His heart rate was 68, blood pressure was 137/86, temperature was 97.4, respiratory rate 20 and oxygen saturation was 95%. HEAD, EYES, EARS, NOSE AND THROAT: Showed normocephalic, atraumatic. NECK: Supple. HEART: Showed normal first and second heart sounds with no gallop, rub or murmur. CHEST: Clear to auscultation. No crepitation or rhonchi. ABDOMEN: Distended, soft, nontender. No guarding or rigidity. No organomegaly. All hernial orifice intact. Bowel sounds normal. NEUROLOGIC: He was awake, alert, responding appropriately. All cranial nerves intact. He moves extremities without difficulty. LABORATORY DATA: As of this morning showed a serum sodium 138, potassium 4, chloride 106, bicarbonate 23, anion gap of 9, BUN 19, creatinine 0.9. Estimated GFR was 86 mL per minute. His glucose was 269. Calcium was 8.2. His white cell count was 7700, hemoglobin 14.4, hematocrit 41, MCV 83 and platelet count 258,000. The Cardiology team also ordered an echocardiogram. DISCHARGE MEDICATIONS: The patient was discharged home to continue on his metformin 1000 mg twice a day, lisinopril 40 mg once a day. He was also discharged on Neurontin 100 mg 3 times a day and Amaryl 2 mg twice a day. We advised with the recommendation that he should follow with his primary care physician as he probably needs more adjustment to his medications and might eventually need to be on insulin to control his blood sugar. DIO GUERRERO MD DR: DOMINIC/juma JOB#: [id number] / [id number]
== END 2018-07-08 13:02 | disposition home or self-care (01) | DRG 312 ==
LOC: ER 13:29 → 1 SOUTH 15:14
PROVIDERS: ADMIT Internal Medicine; ATTEND Internal Medicine
DX: R55 Syncope and collapse (principal); E11.65 Type 2 diabetes mellitus with hyperglycemia; E11.42 Type 2 diabetes mellitus with diabetic polyneuropathy; E78.00 Pure hypercholesterolemia, unspecified; E78.5 Hyperlipidemia, unspecified; M19.90 Unspecified osteoarthritis, unspecified site; F31.9 Bipolar disorder, unspecified; I10 Essential (primary) hypertension; N40.0 Benign prostatic hyperplasia without lower urinary tract symptoms; Z79.84 Long term (current) use of oral hypoglycemic drugs; Z82.3 Family history of stroke; Z82.49 Family history of ischemic heart disease and other diseases of the circulatory system; Z98.41 Cataract extraction status, right eye; Z83.3 Family history of diabetes mellitus; Z98.42 Cataract extraction status, left eye; Z90.49 Acquired absence of other specified parts of digestive tract; R07.89 Other chest pain
CPT/HCPCS: 36415; 70450; 71045; 80048; 80053; 80061; 81001; 82553; 82947; 83735; 83880; 84484; 85025; 85379; 93005; 93971; 96360; 96361; J1815; 99285-25; J7030

== ENCOUNTER 2020-05-01 07:48 | Inpatient (IN) | payer MEDICARE, OTHER ==
[~2020-05-01] VITALS: Ht 167.6 cm; Wt 102.5 kg
[~2020-05-01 07:48] MED LIST changes: +GABA600T PO; +GLIM1TAB PO; -LISI-334 PO; +LISI20TA18 PO; +LISI40TA6 PO
--- NOTE | 2020-05-01 08:18 | PHYS DOC ---
Past History Past Medical History: Arthritis, Diabetes, DVT, Gallstones, High Cholesterol, Hypertension, Other Past Surgical History: Cholecystectomy, Tonsillectomy, Other Additional Past Surgical Histo: LEFT LEG CLOT SURGERY; SHOULDER SURGERY Alcohol Use: Occasionally Drug Use: None General Adult EDM: Chief Complaint: ABDOMINAL PAIN HPI: HPI: 60-year-old male presented emerge department today with abdominal pain left groin pain and left thigh pain. This all started few days ago. Its sharp shooting pain. It comes and goes. It is worse when he walks. It is worse when he stands. Its improved with rest. He denies nausea vomiting fevers or chills. He denies diarrhea. He reports normal bowels. He denies hematuria polyuria. He has a history of an appendectomy. Review of systems negative for chest pain shortness of breath headache fevers or chills. All other review of systems negative. ED course: 60-year-old male presenting the emergency department today with left groin thigh and abdominal pain. CBC unremarkable. Chemistry panel shows low carbon dioxide of 20. Anion gap present. Glucose of 256. Lactic acid within normal limits. Lipase within normal limits. Urine analysis shows glucose and ketones positive nitrites. Patient was given IV antibiotics for possible urinary tract infection. IV fluids given. I spoke with Dr. Garces. Will admit the patient for IV fluid administration and bring the patient's glucose under control and treatment for a possible urinary tract infection. Patient CT of the abdomen pelvis, ultrasound of the extremities and abdominal/scrotal ultrasound were unremarkable for acute pathology. Allergies: Allergies: Allergies Coded Allergies Type Severity Reaction Last Updated Verified No Known Drug Allergies 05/01/20 No Physical Exam: PE: Constitutional: Well developed, well nourished, no acute distress, non-toxic appearance. [] HENT: Normocephalic, atraumatic, bilateral external ears normal, oropharynx moist, no oral exudates, nose normal. [] Eyes: PERRLA, EOMI, conjunctiva normal, no discharge. [] Neck: Normal range of motion, no tenderness, supple, no stridor. [] Cardiovascular:Heart rate regular rhythm, no murmur [] Lungs & Thorax: Bilateral breath sounds clear to auscultation [] Abdomen: Bowel sounds normal, soft, mild tenderness to palpation in the suprapubic region. no masses, no pulsatile masses. Nondistended. No rebound tenderness or guarding. The patient's left groin is mildly tender to palpation without any masses. No hernias present. exam: Normal testes and penis. No swelling. No erythema. Nontender. Skin: Warm, dry, no erythema, no rash. [] Back: No tenderness, no CVA tenderness. [] Extremities: The patient's left thigh is mildly tender. No erythema. No crepitus. Otherwise the remainder the extremities are nontender without any signs of cyanosis or clubbing. Normal range of motion of the joints without any pain. Neurovascular intact with palpable pulse and 2-second cap refill. No edema. Neurologic: Alert and oriented X 3, normal motor function, normal sensory function, no focal deficits noted. [] Psychologic: Affect normal, judgement normal, mood normal. [] Current Patient Data: Vital Signs: Vital Signs Date Time Temp Pulse Resp B/P (MAP) Pulse Ox O2 Delivery O2 Flow Rate FiO2 05/01/20 08:01 97.6 69 26 150/104 (119) 98 Room Air EKG: EKG: [] Radiology/Procedures: Radiology/Procedures: [] Heart Score: Risk Factors: Risk Factors: DM, Current or recent (<one month) smoker, HTN, HLP, family history of CAD, obesity. Risk Scores: Score 0 - 3: 2.5% MACE over next 6 weeks - Discharge Home Score 4 - 6: 20.3% MACE over next 6 weeks - Admit for Clinical Observation Score 7 - 10: 72.7% MACE over next 6 weeks - Early Invasive Strategies Course & Med Decision Making: Course & Med Decision Making Pertinent Labs and Imaging studies reviewed. (See chart for details) [] Dragon Disclaimer: Dragon Disclaimer: This electronic medical record was generated, in whole or in part, using a voice recognition dictation system. Departure Departure: Impression: Primary Impression: Urinary tract infection Additional Impressions: Abdominal pain High anion gap metabolic acidosis Uncontrolled diabetes mellitus Disposition: ADMITTED INPT THIS HOSP Admitting Physician: Avel Tomlinson Condition: STABLE Referrals: FABIOLA HERNANDEZ (PCP) MATEO BRADFORD MD May 01, 2020 08:18
[2020-05-01] MEDS ORDERED: IV NORMAL SALINE 1,000ML 1,000 ML IV ONE ×3 (08:30→11:30)
[2020-05-01] MEDS ORDERED: IOHEXOL 300 MG/ML 75 ML VIAL. IV ONE (08:45)
[2020-05-01 08:49] LABS: BASO # 0.1 x10^3/uL (0.0-0.2); BASO % 1 % (0-3); EOS # 0.1 x10^3/uL (0.0-0.7); EOS % 1 % (0-3); HEMATOCRIT 49.2 % (39.0-53.0); HEMOGLOBIN 16.8 g/dL (13.0-17.5); LYMPH # 2.5 x10^3/uL (1.0-4.8); LYMPH % 34 % (24-48); MEAN CORPUSCULAR HEMOGLOBIN 28 pg (25-35); MEAN CORPUSCULAR HGB CONC 34 g/dL (31-37); MEAN CORPUSCULAR VOLUME 83 fL (79-100); MONO # 0.6 x10^3/uL (0.0-1.1); MONO % 8 % (0-9); NEUT # 4.1 x10^3uL (1.8-7.7); NEUT % 55 % (31-73); PLATELET COUNT 177 x10^3/uL (140-400); RED BLOOD COUNT 5.95 x10^6/uL (4.30-5.70); RED CELL DISTRIBUTION WIDTH 13.8 % (11.5-14.5); WHITE BLOOD COUNT 7.4 x10^3/uL (4.0-11.0)
[2020-05-01 09:02] LABS: CALCIUM 8.8 mg/dL (8.5-10.1); GFR 75.7; POTASSIUM 3.5 mmol/L (3.5-5.1)
[2020-05-01 09:09] LABS: ALBUMIN 3.7 g/dL (3.4-5.0); DIRECT BILIRUBIN 0.6 mg/dL (0.0-0.2); TOTAL BILIRUBIN 1.4 mg/dL (0.2-1.0); TOTAL PROTEIN 8.4 g/dL (6.4-8.2)
--- NOTE | 2020-05-01 09:43 | RAD ---
PQRS Compliance Statement: One or more of the following individualized dose reduction techniques were utilized for this examinat ion: 1. Automated exposure control 2. Adjustment of the mA and/or kV according to patient size 3. Use of iterative reconstruction technique CT ABDOMEN+PELVIS W Clinical Indication: Reason: abd pain, Comparison: None. Technique: Helical CT imaging of the abdomen and pelvis is performed after 75 cc of Omnipaque 300 IV contrast. Oral contrast not administered. Findings: Mild atelectasis or scarring in the posterior left lower lobe. Cardiac size normal. Cholecystectomy. Small cyst or hemangioma in the hepatic dome. Liver otherwise homogeneous. The splee n, adrenal glands, and abdominal aorta caliber are normal. There are small calcifications of the panc reas parenchyma suggesting chronic calcific pancreatitis. There is no peripancreatic inflammation. There is no hydronephrosis. Kidneys enhance symmetrically. There are tiny bilateral nonobstructing re nal calculi, one on the left and one on the right. Small bilateral renal cysts do not require follow- up. The stomach is decompressed, limiting evaluation. There is no dilated small bowel. The appendix is no rmal. Mild sigmoid colon diverticulosis. No abdominal adenopathy or free fluid. Urinary bladder is mostly decompressed accentuating the wall thickness and limiting evaluation. Prost ate is mildly enlarged and is heterogeneous. No pelvic free fluid. There is disc space narrowing and vacuum disc phenomenon of L5/S1. There is mild grade 1 anterolisthe sis of L4 on L5. There is mild grade 1 retrolisthesis of L3 on L4 and L2 on L3 and L1 on L2. IMPRESSION: 1. No acute abdominal or pelvic abnormality. 2. Bilateral nonobstructing renal calculi. 3. Findings of chronic calcific pancreatitis. 4. The prostate is mildly enlarged and heterogeneous. Suggest correlation with PSA. 5. Mild sigmoid colon diverticulosis. Electronically signed by: Jorge Alberto Mesa MD (05/01/2020 9:40 AM) [id number]
[2020-05-01 09:51] LABS: BILIRUBIN,URINE NEG (NEG); CLARITY,URINE HAZY; GLUCOSE,URINE 500 mg/dL (NEG)
[2020-05-01 09:52] LABS: BACTERIA,URINE 0 /HPF (0-FEW); COLOR,URINE AMBER; NITRITE,URINE POS (NEG); SQUAMOUS EPITHELIAL CELL,UR MOD /LPF
--- NOTE | 2020-05-01 09:54 | RAD ---
US BILATERAL LOWEREXTREMITY VENOUS DOPPLER 05/01/2020 8:59 AM Clinical Information: Groin pain and history of DVT. Comparison: None. Technique: Multiple grayscale, color Doppler, and spectral Doppler sonographic images of the lower ex tremity venous structures were obtained. Findings: The right common femoral, femoral, and popliteal veins exhibit normal compression, respiratory phasic ity, and augmentation. No intraluminal thrombi are identified. Color Doppler flow is demonstrated in the right posterior tibial veins. The left common femoral, femoral, and popliteal veins exhibit normal compression, respiratory phasici ty, and augmentation. No intraluminal thrombi are identified. Color Doppler flow is demonstrated in t he left posterior tibial veins. Greater saphenous veins are patent at the saphenofemoral junction. Impression: 1. No evidence of deep venous thrombosis. Electronically signed by: Marcy Rousseau MD (05/01/2020 9:51 AM) [id number]
--- NOTE | 2020-05-01 09:55 | RAD ---
US TESTICULAR: 05/01/2020 8:59 AM INDICATION: 60 years old Male. Groin pain COMPARISON: None. FINDINGS: Right: Testicle: Normal in echotexture without focal lesion. There is suggestion of dilated rete testes sabino uring up to 1.0 x 0.9 x 1.1 cm. Size: 3.3 x 3.0 x 2.7 cm. Flow: Normal color Doppler flow pattern. Epididymis: Normal in size and echotexture without focal lesion. Hydrocele: None. Varicocele: Small. Left: Testicle: Normal in echotexture without focal lesion. Size: 3.7 x 3.6 x 2.3 cm. Flow: Normal color Doppler flow pattern. Epididymis: Normal in size and echotexture without focal lesion. Hydrocele: None. Varicocele: Small. IMPRESSION: 1. Perfusion is noted the testicles bilaterally at the time of imaging. 2. There is suggestion of a dilated rete testes on the right. 3. Small bilateral varicoceles. Electronically signed by: Marcy Rousseau MD (05/01/2020 9:53 AM) [id number]
[2020-05-01] MEDS ORDERED: ONDANSETRON PF 4 MG/2 ML VIAL. IV ONE (10:30)
[2020-05-01] MEDS ORDERED: PIPERACILLIN/TAZOBACTAM 4.5 GM in IV NORMAL SALINE 50ML 50 ML IV SCH (11:00)
[2020-05-01] MEDS ORDERED: PIP/TAZO PER PHARMACY MC PRN (11:15)
[2020-05-01] MEDS ORDERED: IV NORMAL SALINE 50ML 50 ML ONE (11:22)
[2020-05-01] MEDS ORDERED: PIPERACILLIN/TAZOBACTAM 4.5 GM VIAL IV ONE (11:22)
[2020-05-01 16:16] VITALS: BP 172/98
[2020-05-01] MEDS ORDERED: DEXTROSE 50% 25 GM / 50ML DISP.SYRIN. IV PRN (17:30)
--- NOTE | 2020-05-01 17:30 | NUR ---
Patient arrived to the unit via EMS. Patient is alert and oriented. Vital signs within normal range. Patient was oriented to unit routines. Patient is currently in bed with side rails up X's 2 with call light in reach.
[2020-05-01] MEDS: POTASSIUM CL 20MEQ IN 0.9%NACL 1,000 ML IV SCH (18:00)
--- NOTE | 2020-05-01 18:54 | HP ---
ADMIT DATE: 05/01/2020 HISTORY OF PRESENT ILLNESS: The patient is a 60-year-old male patient who came to the Emergency Room with a complaint of pain in his left groin, left thigh and left lower quadrant, all this started about 4 days ago with a sharp, shooting pain that comes and goes. It is worse when he walks, worse when he stands, it improves with rest. He did complain of recurrent bouts of nausea, vomiting, but no diarrhea. Denied any chills, rigors or fever. He had normal bowel movement. He did complain of polyuria and nocturia. He goes to the bathroom about six times at nighttime. He apparently ran out of his medication about a month ago. He was extensively investigated in the Emergency Room and has had lab work including a CBC, which was unremarkable. His chemistry showed that he has hyperglycemia, mild hyponatremia, but otherwise unremarkable. His urinalysis showed that the urine was positive for nitrite. There was 3-5 rbc's, 11-20 wbc's, and very few bacteria. He underwent abdominal and scrotal ultrasound with impression that the effusion is noted to his testicles bilaterally at the time of imaging. There is suggestion of a dilated right testis on the right, small bilateral varicoceles. He has had venous Doppler ultrasound of the left lower extremity, which showed that there is no evidence of deep vein thrombosis. The CT scan of the abdomen and pelvis also showed that the patient has no acute abdominal pelvic abnormality. Bilateral nonobstructing renal calculi, finding chronic calcific pancreatitis. The prostate is mildly enlarged and heterogenous suggest correlation with PSA, mild sigmoid colon diverticulosis. The patient was admitted basically with poorly controlled blood sugar and severe pain in the left thigh, left knee and left groin area. He has also intertriginous candidiasis in the left groin and also his scrotal skin. PAST MEDICAL HISTORY: Significant for type 2 diabetes mellitus, hypertension, hyperlipidemia, benign prostatic hypertrophy. PAST SURGICAL HISTORY: Significant for cholecystectomy, appendectomy, hernia repair, bilateral cataract extraction and left rotator cuff repair. ALLERGIES: He has no known drug allergies. MEDICATIONS: He is currently on following medications: He is normally on lisinopril 40 mg once a day, gabapentin 100 mg 3 times a day, metformin 1000 mg twice a day and glimepiride takes 2 mg twice a day. FAMILY HISTORY: He has 5 brothers and 4 sisters, all alive, hypertension, diabetes very common in his family. His father in his 70s because of myocardial infarction. Mother in her 70s because of myocardial infarction. SOCIAL HISTORY: He is . One of his sons lives with him. He has 3 sons and 2 daughters. He does not smoke, drinks alcohol occasionally. He smokes marijuana. 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 REVIEW OF SYSTEMS: The patient has bilateral cataract extraction, but denied any glaucoma or macular degeneration. Denied any earache, tinnitus or sensorineural deafness. Denied any nosebleeds, stuffy nose or postnasal drip. Denied any sore throat, sore tongue, toothache, hoarseness of voice or difficulty swallowing. Did say that he lost about 30 pounds. He has nausea and vomiting, but denied any diarrhea or constipation. Denied any hematemesis, melena or hematochezia. Denied any dysuria. Did complain of frequency and nocturia. Denied any chest pain, shortness of breath, orthopnea, paroxysmal nocturnal dyspnea. Denied any cough, phlegm or hemoptysis. PHYSICAL EXAMINATION: GENERAL: On examining him, the patient looked well and was clearly in no apparent respiratory distress. There was no pallor, jaundice or cyanosis. No lymphadenopathy, no thyromegaly. No jugular venous distention. No lower limb edema. VITAL SIGNS: His heart rate was 65, blood pressure was 172/98, temperature was 97.5, respiratory rate 20, and oxygen saturation was 97%. HEAD, EYES, EARS, NOSE AND THROAT: Showed normocephalic, atraumatic. NECK: Supple. HEART: Showed normal first and second heart sounds with no gallop or murmur. CHEST: Shows central trachea, equal bilateral chest expansion, air entry, vesicular sounds. No crepitation or rhonchi. ABDOMEN: Distended. Tenderness mostly in the left lower quadrant. There is no guarding or rigidity. No organomegaly. All hernial orifice intact. Bowel sounds normal. NEUROLOGIC: He is awake, alert, responding appropriately. EXTREMITIES: He moves all his extremities without difficulty. He has very prominent varicose veins on the medial aspect of the left leg and left thigh, the skin overlying the varicose veins in the medial aspect of the left thigh is very tender. He has also tenderness in the left groin area. He has intertriginous candidiasis, worse in the left side and the scrotal skin very erythematous. However, the patient is able to get out of the bed, stand and ambulate. He also complained of severe pain in his right shoulder and apparently he was supposed to have another surgery on his right rotator cuff tear, but was postponed. LABORATORY DATA: This morning showed a white cell count 7400, hemoglobin 16.8, hematocrit 49, MCV 83 and platelet count of 177,000. Serum sodium was 134, potassium 3.5, chloride 97, bicarbonate 20, anion gap of 17, BUN 18, creatinine 1, estimated GFR was 75 mL per minute. His glucose was 256. Lactic acid 0.9, calcium was 8.8. Total bilirubin and AST slightly elevated. ALT and alkaline phosphatase was normal. Total protein 8.4, albumin was 3.7. Urinalysis today showed the urine was raudel, hazy with a pH of 5.5, specific gravity of 1.030, was large amount of protein, there is large amount of glucose, large amount of ketones. There was a trace of blood. The urine was positive for nitrite with 11-20 wbc's, 3-5 rbc's, although there is no bacteria in the urine. His CT scan of the abdomen and pelvis showed that he has mild atelectasis or scarring in the posterior left lower lobe. Cardiac size is normal, has cholecystectomy, small cyst or hemangioma in the hepatic dome, the liver otherwise is homogenous. The spleen, adrenal glands and abdominal aorta caliber are normal. There are small calcification of the pancreatic parenchyma suggestive of chronic calcific pancreatitis. There are no peripancreatic inflammation. There is no hydronephrosis. Kidneys enhance symmetrically. There are tiny bilateral nonobstructing renal calculi, one in the left and one in the right, small bilateral renal cysts that did not require followup. The stomach is decompressed, limiting evaluation. There is no dilated small bowel. Appendix is normal. He has mild sigmoid colon diverticulosis. No abdominal adenopathy or free fluid. Urinary bladder is mostly decompressed accentuating the wall thickness and limiting evaluation. Prostate is mildly enlarged and heterogenous. No pelvic free fluid. There is disk space narrowing and vacuum disk phenomenon at L5-S1. There is mild grade 1 anterolisthesis of L4 on L5. There is mild grade 1 retrolisthesis of L3 on L4 and L2 on L3 and L1 on L2 with the impression the patient has no acute abdominal or pelvic abnormality. Bilateral nonobstructing renal calculi. Findings of chronic calcific pancreatitis. The prostate is mildly enlarged and heterogenous suggest correlation with PSA, mild sigmoid colon diverticulosis. ASSESSMENT AND PLAN: In summary, this is a 60-year-old male patient who came in with complaint of pain mostly in the left lower quadrant, left groin, left thigh and left knee. He has also complained of pain in his testicles. He has very prominent varicose veins on the medial aspect of his left leg and left thigh and the medial aspect of left thigh is very tender to palpation. He has also intertriginous candidiasis involving the left groin and scrotum probably indicating that his blood sugar is not well controlled. His prostate is heterogenous and enlarged raising the possibility of prostate cancer and he has also some features suggestive of urinary tract infection. My plan is to continue with IV antibiotic, IV fluid. I will resume his medication and also add insulin sliding scale and nystatin powder to the affected areas in his groin and scrotum. I would also check PSA and we might also consider doing a bone scan looking for metastatic prostate cancer. DIO GUERRERO MD DR: DOMINIC/juma JOB#: [id number] / [id number]
[2020-05-01 18:55] LABS: ALBUMIN 3.1 g/dL (3.4-5.0); ALBUMIN/GLOBULIN RATIO 0.8 (1.0-1.7); BASO # 0.1 x10^3/uL (0.0-0.2); BASO % 1 % (0-3); CALCIUM 7.9 mg/dL (8.5-10.1); CREATININE 0.9 mg/dL (0.7-1.3); EOS # 0.1 x10^3/uL (0.0-0.7); EOS % 2 % (0-3); GFR 85.5; HEMATOCRIT 44.7 % (39.0-53.0); LYMPH # 2.6 x10^3/uL (1.0-4.8); LYMPH % 44 % (24-48); MEAN CORPUSCULAR HEMOGLOBIN 28 pg (25-35); MEAN CORPUSCULAR HGB CONC 34 g/dL (31-37); MEAN CORPUSCULAR VOLUME 83 fL (79-100); MONO # 0.5 x10^3/uL (0.0-1.1); MONO % 9 % (0-9); NEUT # 2.7 x10^3uL (1.8-7.7); NEUT % 45 % (31-73); PLATELET COUNT 152 x10^3/uL (140-400); POTASSIUM 3.6 mmol/L (3.5-5.1); RED BLOOD COUNT 5.37 x10^6/uL (4.30-5.70); RED CELL DISTRIBUTION WIDTH 13.8 % (11.5-14.5); TOTAL BILIRUBIN 0.9 mg/dL (0.2-1.0); TOTAL PROTEIN 7.2 g/dL (6.4-8.2); WHITE BLOOD COUNT 5.9 x10^3/uL (4.0-11.0)
[2020-05-01] MEDS: ONDANSETRON PF 4 MG/2 ML VIAL. IVP PRN (19:26)
[2020-05-01] MEDS: ACETAMINOPHEN 325 MG TABLET PO PRN (19:27)
[2020-05-01] MEDS: GABAPENTIN 100 MG CAPSULE. PO SCH (19:31)
[2020-05-01] MEDS: NYSTATIN TOPICAL POWDER 15GM BOTTLE. TP SCH (19:31)
[2020-05-01] MEDS: metFORMIN 500 MG TABLET PO SCH (19:31)
[2020-05-01] MEDS: GLIMEPIRIDE 2 MG TABLET PO SCH (19:31)
[2020-05-01 19:40] VITALS: BP 182/93
[2020-05-01 20:24] VITALS: BP 167/93
[2020-05-01 23:22] VITALS: BP 157/84
[2020-05-02] MEDS: POTASSIUM CL 20MEQ IN 0.9%NACL 1,000 ML IV SCH ×3 (03:36→23:30)
[2020-05-02 05:49] VITALS: BP 155/94
[2020-05-02] MEDS: ONDANSETRON PF 4 MG/2 ML VIAL. IVP PRN (06:09)
[2020-05-02] MEDS: ACETAMINOPHEN 325 MG TABLET PO PRN ×3 (06:09→20:04)
--- NOTE | 2020-05-02 06:26 | NUR ---
PT AWOKE C/O HEAD FULLNESS AND CHEST DISCOMFORT. PT STATES IT IS DIFFICULT TO TAKE A DEEP BREATH AND FEELS THOUGH "SOMETHING IS SITTING ON MY CHEST." VS ASSESSED, BP ELEVATED. WITH DR. GUERRERO NOTIFIED AND ORDERS RECEIVED.
--- NOTE | 2020-05-02 06:56 | RAD ---
AP chest x-ray HISTORY: Chest pain shortness of breath. FINDINGS: Heart size normal. Mediastinal silhouette is normal. No pneumothorax, pulmonary opacities o r pleural effusions. Bones are unremarkable. IMPRESSION: No acute process. Electronically signed by: Steven Gentile MD (05/02/2020 6:53 AM) [facility] [place]
[2020-05-02 07:44] LABS: ALBUMIN/GLOBULIN RATIO 0.8 (1.0-1.7); CREATININE 0.9 mg/dL (0.7-1.3); GFR 85.5; POTASSIUM 3.7 mmol/L (3.5-5.1); TOTAL BILIRUBIN 0.7 mg/dL (0.2-1.0); TOTAL PROTEIN 6.9 g/dL (6.4-8.2)
--- NOTE | 2020-05-02 07:44 | EKG ---
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
[2020-05-02] MEDS: INSULIN LISPRO 300 UNITS/3 ML VIAL. SQ SCH ×3 (08:00→16:43)
[2020-05-02 08:05] LABS: BASO # 0.1 x10^3/uL (0.0-0.2); BASO % 1 % (0-3); EOS # 0.1 x10^3/uL (0.0-0.7); EOS % 2 % (0-3); HEMATOCRIT 43.3 % (39.0-53.0); HEMOGLOBIN 14.6 g/dL (13.0-17.5); LYMPH # 2.3 x10^3/uL (1.0-4.8); LYMPH % 34 % (24-48); MEAN CORPUSCULAR HEMOGLOBIN 28 pg (25-35); MEAN CORPUSCULAR HGB CONC 34 g/dL (31-37); MEAN CORPUSCULAR VOLUME 83 fL (79-100); MONO # 0.6 x10^3/uL (0.0-1.1); MONO % 8 % (0-9); NEUT # 3.7 x10^3uL (1.8-7.7); NEUT % 55 % (31-73); PLATELET COUNT 147 x10^3/uL (140-400); RED BLOOD COUNT 5.21 x10^6/uL (4.30-5.70); RED CELL DISTRIBUTION WIDTH 13.8 % (11.5-14.5); WHITE BLOOD COUNT 6.8 x10^3/uL (4.0-11.0)
[2020-05-02] MEDS: metFORMIN 500 MG TABLET PO SCH ×2 (08:57→17:47)
[2020-05-02] MEDS: GLIMEPIRIDE 2 MG TABLET PO SCH ×2 (08:57→17:47)
[2020-05-02] MEDS: LISINOPRIL 20 MG TABLET PO SCH (08:57)
[2020-05-02] MEDS: GABAPENTIN 100 MG CAPSULE. PO SCH ×3 (08:58→20:04)
[2020-05-02] MEDS: NYSTATIN TOPICAL POWDER 15GM BOTTLE. TP SCH ×2 (09:00→20:04)
[2020-05-02] MEDS: TAMSULOSIN 0.4 MG CAP.ER.24H. PO SCH (10:12)
--- NOTE | 2020-05-02 10:46 | PN ---
DATE: 05/02/2020 ATTENDING PHYSICIAN: Dr. Tomlinson. SUBJECTIVE: Pain is improved. Blood sugars are better. He is having some indigestion. We did order an EKG and cardiac enzyme. He has been noncompliant of his medications and has not taken his blood pressure, nor diabetic regimen for several months. OBJECTIVE FINDINGS: VITAL SIGNS: Blood pressure today is 155/94, pulse 64 and regular, temperature 97.7, oxygen saturation 96% on room air. HEENT: Head is without trauma. Pupils are reactive. Sclerae are nonicteric. Oropharynx clear. NECK: Supple, no bruits. LUNGS: Clear. CARDIOVASCULAR: Showed regular heart tones. No gallops, no murmurs. Peripheral pulses are palpable and full. ABDOMEN: Obese, protuberant. No guarding or rebound tenderness. EXTREMITIES: Showed no cyanosis or edema. Intertriginous area of the left thigh is improved. There is no redness or erythema. Symptoms have improved. LABORATORY DATA: Last two sugars were 138 and 165 mg/dL respectively. ASSESSMENT: 1. A 60-year-old gentleman with uncontrolled diabetes. 2. Noncompliance of meds. 3. Essential hypertension. 4. Intertriginous fungal infection. 5. Indigestion, rule out coronary ischemia. PLAN: 1. We shall order a serum troponin level. 2. Restart lisinopril 40 mg daily. 3. Restart glimepiride and metformin b.i.d. 4. Follow up blood sugar. 5. Tentative discharge plans for tomorrow. MELINA ROGERS MD DR: MONIQUE/juma JOB#: [id number] / [id number]
[2020-05-02 11:10] VITALS: BP 156/94
[2020-05-02] MEDS: guaiFENesin DM 600/30MG 1 TAB TAB.ER.12H PO SCH ×2 (14:34→20:04)
[2020-05-02 15:15] VITALS: BP 149/89
[2020-05-02 18:25] VITALS: BP 173/99
[2020-05-02 23:04] VITALS: BP 111/66
[2020-05-03] MEDS: ACETAMINOPHEN 325 MG TABLET PO PRN (05:13)
--- NOTE | 2020-05-03 05:35 | NUR ---
Pt slept well overnight. Awoke this AM c/o RANGEL, rated 6:10. PRN tylenol given per request.
[2020-05-03 05:57] VITALS: BP 137/92
[2020-05-03] MEDS: INSULIN LISPRO 300 UNITS/3 ML VIAL. SQ SCH (08:00)
[2020-05-03] MEDS: guaiFENesin DM 600/30MG 1 TAB TAB.ER.12H PO SCH (08:06)
[2020-05-03] MEDS: metFORMIN 500 MG TABLET PO SCH (08:07)
[2020-05-03] MEDS: TAMSULOSIN 0.4 MG CAP.ER.24H. PO SCH (08:07)
[2020-05-03 08:08] VITALS: BP 137/92
[2020-05-03] MEDS: GLIMEPIRIDE 2 MG TABLET PO SCH (08:08)
[2020-05-03] MEDS: GABAPENTIN 100 MG CAPSULE. PO SCH (08:08)
[2020-05-03] MEDS: LISINOPRIL 20 MG TABLET PO SCH (08:08)
--- NOTE | 2020-05-03 09:10 | DS ---
DATE OF DISCHARGE: ATTENDING PHYSICIANS: Dr. Tomlinson/Dr. Rogers. FINAL DISCHARGE DIAGNOSES: 1. A 60-year-old gentleman with uncontrolled diabetes. 2. Noncompliance of meds. 3. Essential hypertension. 4. Intertriginous fungal infection. 5. Indigestion coronary ischemia ruled out. HISTORY AND PHYSICAL: The patient is a 60-year-old gentleman. He has been in and out of town, he stopped his medication. Sugars were out of control. He had nonspecific left groin pain due to a fungal infection. PHYSICAL EXAMINATION: Please see the dictated note. PERTINENT LABORATORY AND X-RAY STUDIES: Admission blood sugars were in the 300s with prompt shinto of his medication, it came down nicely 138, 106, 124, and 90 mg/dL prior to discharge. Cardiac enzymes were negative for coronary ischemia. Hemoglobin maintained at 14.6 g/dL with a white count of 6800. Cholesterol level was ordered on admission. Transaminases were normal. Electrolytes all within normal range. COURSE IN HOSPITAL: The patient was admitted. Blood pressure was high. He was restarted on his home meds with improvement. Sugars were also better controlled ____ noncompliant. He did well. The fungal infection improved. Pain resolved. He was able to ambulate without any problems. On the third hospital day, sugars were fine. Blood pressure and vital signs improved. BP was down to 111/66, pulse 64 and regular. He is afebrile and had adequate oxygen saturation 98% on room air. He is discharged home with the following meds: Lisinopril 40 mg p.o. daily, metformin 1000 mg b.i.d. and finally Amaryl 2 mg b.i.d. In addition, he will continue his Neurontin 100 mg t.i.d. He will follow up with [facility] Bower hopefully in 2 weeks. He was discharged then from our hospital in stable condition with explicit instructions and followup care. TOTAL DISCHARGE TIME SPENT: 39 minutes. MELINA ROGERS MD DR: MONIQUE/juma JOB#: [id number] / [id number] TAN Tinoco
--- NOTE | 2020-05-03 09:23 | NUR ---
PATIENT IS DISCHARGED HOME, DISCHARGED INSTRUCTION REVIEWED, PATIENT VERBALIZED UNDERSTANDING. PATIENT LEFT UNIT VIA AMBULATION ACCOMP BY THIS RN. PATIENT IS TAKEN HOME BY FAMILY MEMBER VIA PERSONAL VEHICLE.
[2020-05-03] MEDS ORDERED: LACTOBACILLUS RHAMNOSUS GG 1 CAPSULE. PO SCH (21:00)
== END 2020-05-03 09:25 | disposition home or self-care (01) | DRG 638 ==
LOC: ER 07:48 → 1 SOUTH 11:20 → ER 15:48
PROVIDERS: ADMIT Internal Medicine; ATTEND Internal Medicine
DX: E11.65 Type 2 diabetes mellitus with hyperglycemia (principal); N39.0 Urinary tract infection, site not specified; E87.1 Hypo-osmolality and hyponatremia; K86.1 Other chronic pancreatitis; E87.2 Acidosis; B35.6 Tinea cruris; B37.2 Candidiasis of skin and nail; E78.00 Pure hypercholesterolemia, unspecified; E78.5 Hyperlipidemia, unspecified; F12.90 Cannabis use, unspecified, uncomplicated; I10 Essential (primary) hypertension; I83.90 Asymptomatic varicose veins of unspecified lower extremity; N20.0 Calculus of kidney; N40.0 Benign prostatic hyperplasia without lower urinary tract symptoms; Z82.49 Family history of ischemic heart disease and other diseases of the circulatory system; Z83.3 Family history of diabetes mellitus; Z86.718 Personal history of other venous thrombosis and embolism; Z91.14 Patient's other noncompliance with medication regimen; Z91.19 Patient's noncompliance with other medical treatment and regimen; Z98.41 Cataract extraction status, right eye; Z98.42 Cataract extraction status, left eye; M19.90 Unspecified osteoarthritis, unspecified site; Z79.01 Long term (current) use of anticoagulants
CPT/HCPCS: 36415; 71045; 74177; 76870; 80048; 80053; 80076; 81001; 82947; 83605; 83690; 84484; 85025; 87040; 87086; 93005; 93970; 96361; 96365; 96375; G0103; J0696; J1815; J2405; J2543; Q9967; 99285-25; J7030

== ENCOUNTER → 2020-05-09 | Outpatient (CLI) | payer MEDICARE, OTHER ==
[2020-05-03 08:08] VITALS: BP 137/92
--- NOTE | 2020-05-09 14:23 | RAD ---
EXAM: Supine and upright AP view of the abdomen DATE: 05/09/2020 11:42 AM INDICATION: Reason: ABD PAIN / Spl. Instructions: / History: COMPARISON: No Prior FINDINGS: No abnormal small or large bowel dilatation. Moderate colonic stool content. No abnormal soft tissu e mass effect. No suspicious calcifications are seen. No free intraperitoneal gas. Cholecystectomy clips are seen. IMPRESSION: 1. No evidence for bowel obstruction. 2. Cholecystectomy clips are seen. 3. Moderate colonic stool content. Electronically signed by: Ceferino Freeman MD (05/09/2020 2:21 PM) [id number]
== END ==
LOC: RAD 11:18
PROVIDERS: ATTEND Physician Assistant
DX: R10.9 Unspecified abdominal pain (principal); I10 Essential (primary) hypertension; Z90.49 Acquired absence of other specified parts of digestive tract
CPT/HCPCS: 74019

== ENCOUNTER → 2020-07-09 | Outpatient (CLI) | payer MEDICARE, OTHER ==
[~2020-07-09] MED LIST changes: +IOHEXOL 240 MG/ML 50ML VIAL. ONE; +IOHEXOL 240 MG/ML 50ML VIAL. PO ONE; +IOHEXOL 300 MG/ML 75 ML VIAL. IV ONE
[2020-07-09 09:13] LABS: GFR 75.7
--- NOTE | 2020-07-09 16:06 | RAD ---
Exam: CT abdomen/pelvis with intravenous contrast Indication: Weight loss, bloody stool, abdominal pain Comparison: CT abdomen pelvis 05/01/2020 Technique: Helical CT imaging performed of the abdomen and pelvis after the intravenous administratio n of 75 mL Omnipaque 300 contrast. Sagittal and coronal reformats were obtained. One or more of the following individualized dose reduction techniques were utilized for this examinat ion: 1. Automated exposure control 2. Adjustment of the mA and/or kV according to patient size 3. Use of iterative reconstruction technique. Findings: Lower chest: Lung bases are clear. The heart is normal in size. Liver: 1.2 cm cyst at the dome the liver is unchanged. No new liver lesion. Gallbladder/Biliary Tree: The gallbladder surgically absent. Bile ducts are normal. Pancreas: There is mild pancreatic atrophy. Small scattered calcifications throughout the pancreas. N o pancreatic duct dilatation. Spleen: Normal. Adrenal Glands: Normal. Kidneys/Ureters/Bladder: Kidneys are normal in size and enhance symmetrically. Bilateral nephrolithia sis is unchanged. 1.5 cm simple left renal cysts and other subcentimeter hypodensities bilaterally. N o hydronephrosis. Ureters are normal. Bladder is decompressed with mild diffuse wall thickening, unch anged. Reproductive Organs: Prostate gland is enlarged and heterogeneous, unchanged. Stomach, small bowel, and colon: The stomach, small bowel, and appendix are normal. Mild sigmoid dive rticulosis. Colon is otherwise normal. Vasculature: Abdominal aorta is normal in caliber. Lymph Nodes: There are a few small prominent mesenteric and retroperitoneal lymph nodes, unchanged an d nonspecific. For example, a portacaval lymph node measuring 9 mm short axis and small aortocaval ly mph node measuring 8 mm short axis. Peritoneum and retroperitoneum: No free fluid or free air. Bones: Grade 1 spondylolisthesis at L4-L5 and degenerative disc disease, greatest at L4-L5 and L5-S1, is unchanged. Impression: 1. No acute abnormality. 2. Bilateral nephrolithiasis. No hydronephrosis. 3. Unchanged enlarged heterogeneous. The prostate gland. Correlate with PSA. 4. Probable chronic pancreatitis. 5. Mild sigmoid diverticulosis. Electronically signed by: Glenna Colon MD (07/09/2020 4:04 PM) [id number]
== END ==
LOC: CT 08:38
PROVIDERS: ATTEND Internal Medicine Gastroenterology
DX: K57.30 Diverticulosis of large intestine without perforation or abscess without bleeding (principal); N20.0 Calculus of kidney; N40.0 Benign prostatic hyperplasia without lower urinary tract symptoms; K76.89 Other specified diseases of liver; K86.89 Other specified diseases of pancreas; K92.1 Melena; N28.1 Cyst of kidney, acquired; R59.0 Localized enlarged lymph nodes; M43.16 Spondylolisthesis, lumbar region; M51.37 Other intervertebral disc degeneration, lumbosacral region; Z90.49 Acquired absence of other specified parts of digestive tract
CPT/HCPCS: 36415; 74177; 82565; 84520; Q9967

== ENCOUNTER 2020-10-30 20:44 | Emergency (ER) | payer MEDICARE, OTHER ==
[~2020-10-30] VITALS: Ht 167.6 cm; Wt 94.0 kg
[~2020-10-30 20:44] MED LIST changes: -IOHEXOL 240 MG/ML 50ML VIAL. ONE; -IOHEXOL 240 MG/ML 50ML VIAL. PO ONE; -IOHEXOL 300 MG/ML 75 ML VIAL. IV ONE
--- NOTE | 2020-10-30 23:11 | PHYS DOC ---
Past History Past Medical History: Arthritis, Diabetes, DVT, Gallstones, High Cholesterol, Hypertension, Other Past Surgical History: Cholecystectomy Additional Past Surgical Histo: LEFT LEG CLOT SURGERY; SHOULDER SURGERY Alcohol Use: None Drug Use: None General Adult EDM: Chief Complaint: Lower abdominal pain, left leg pain, swelling, history of "blood clots" HPI: HPI: 60-year-old male presents to the emergency department with several complaints, chief complaint is several months of left groin, testicular and lower abdominal pain as well as left leg pain. He says he has history of a "blood clot" and is unclear if this was superficial or deep vein thrombosis, the chart says DVT, is not on a blood thinner that he is aware of. He also says that he has had several months of lower abdominal pain that is crampy, comes and goes, not worse with eating, no associated nausea, vomiting or diarrhea. No blood in urine or stool. He said that he was supposed to go to a GI doctor but had not been able to get a ride to the clinic. Denies any night sweats or weight loss Review of Systems: Review of Systems: General: no fevers , no chills, no general weakness Eyes: no blurred vision, no diplopia Skin: no rashes Neck: no swelling, no neck stiffness, no neck pain Heme: no bleeding, no lymph node enlargement Ear/Nose/Throat: No sore throat, no runny nose, no hearing loss, no difficulty swallowing Cardiovascular: no Chest pain, no palpitations Respiratory: No dyspnea, no cough, no hemoptysis Gastrointestinal: + abdominal pain, no nausea, no vomiting, no diarrhea, no blood in stool Genitourinary: no dysuria, no hematuria Musculoskeletal: Positive for left leg pain and swelling Neurologic: no headaches, no dizziness, no focal numbness/tingling, no focal weakness Psych: no depression, no anxiety, no SI/HI *All review of systems are negative other than what is noted above Current Medications: Current Meds: Current Medications Medications (Trade) Dose Ordered Sig/Rupal Start Time Stop Time Status Last Admin Dose Admin Acetaminophen/ Hydrocodone Bitart (Lortab 5/325) 2 tab 1X ONCE 10/30/20 23:30 10/30/20 23:31 10/30/20 23:08 2 TAB Allergies: Allergies: Allergies Coded Allergies Type Severity Reaction Last Updated Verified No Known Drug Allergies 2/2/21 No Physical Exam: PE: Gen-well appearing, no acute distress Head: Normocephalic/Atraumatic ENT: atraumatic, PERRLA, EOMI, oropharynx clear Neck: supple, full ROM/strength, no JVD, no nuchal rigidity Lungs: no distress, speaks in full sentences, Clear to auscultation bilaterally CV: reg rate, rhythm, no murmus/rubs/gallops, peripheral pulses equal in all extremities Abdomen: soft/nontender, no guarding/rebound tenderness, no rigidity, non distended, normoactive bowel sounds Musculoskeletal: full ROM/strength in all extremities, atraumatic, there is 1+ bipedal edema, there is also varicose veins present bilaterally Genitourinary: Normal external appearance, no testicular masses or swelling, there is mild tenderness to palpation in the left testicle, cremasteric reflexes are intact bilaterally Back: full range of motion/strength Skin: intact, no rashes Lymph: no gross EDWIN Neuro: alert and oriented x 4, CN 2-12 grossly intact, Motor strength is 5/5 in all extremities, no focal sensory deficits, no focal ataxia, ambulatory with steady gait Psych: normal mood/affect Current Patient Data: Vital Signs: Vital Signs Date Time Temp Pulse Resp B/P (MAP) Pulse Ox O2 Delivery O2 Flow Rate FiO2 10/30/20 23:08 16 98 Room Air 10/30/20 21:44 98.0 83 162/107 EKG: EKG: [] Radiology/Procedures: Radiology/Procedures: [] Heart Score: C/O Chest Pain: No Risk Factors: Risk Factors: DM, Current or recent (<one month) smoker, HTN, HLP, family history of CAD, obesity. Risk Scores: Score 0 - 3: 2.5% MACE over next 6 weeks - Discharge Home Score 4 - 6: 20.3% MACE over next 6 weeks - Admit for Clinical Observation Score 7 - 10: 72.7% MACE over next 6 weeks - Early Invasive Strategies Course & Med Decision Making: Course & Med Decision Making Pertinent Labs and Imaging studies reviewed. (See chart for details) [] 60-year-old male presented to the emergency department lower abdominal pain and testicular pain/swelling as well as left leg pain, history reportedly of a DVT, he does have superficial varicose veins that I believe is likely the etiology, as the abdominal pain is chronic, plan to get CT noncontrast, ultrasound of the leg and the scrotum although my suspicion for any acute emergent surgical pathology is low, will treat his pain, he has a history of diabetes, reevaluate exam in advance of his work-up determine the best course of action is a data becomes available Updated 2:35 AM: The patient has nitrite positive urine and bilateral renal nafisa culi but no ureteral stones, ultrasound show a benign-appearing cyst in the testicle but otherwise unremarkable, he does not have any signs of clinically significant pyelonephritis and I believe he can be treated with some antibiotics and referral to urology Patient was seen in the ED for flank and groin pain appears to have a case of uncomplicated pyelonephritis and some kidney stones, there is no apparent evidence of any emergency medical pathology at this time, patient was advised follow-up with their primary care provider /physician in the next 24-48 hours and to return to the ED before then if any new or worsening / concerning symptoms had developed. All questions and concerns were addressed at time of disposition Dragon Disclaimer: Rohit Disclaimer: This electronic medical record was generated, in whole or in part, using a voice recognition dictation system. Departure Departure: Impression: Primary Impression: Pyelonephritis Additional Impressions: Kidney stones Varicose veins of bilateral lower extremities with pain Disposition: 01 HOME / SELF CARE / HOMELESS Condition: IMPROVED Referrals: FABIOLA HERNANDEZ (PCP) 2 days Patient Instructions: Kidney Stones, Pyelonephritis, Adult Additional Instructions: You have a bladder infection and some kidney stones, I am going to put you on some pain medicine and antibiotics, way to follow-up with your primary care provider, he needs to refer you to a urologist, I recommend follow-up within 48 hours, drink plenty of fluids, return to the nearest emergency room before then if any new or worsening/concerning symptoms develop Scripts Cefuroxime Axetil (CEFUROXIME) 500 Mg Tablet 1 TAB PO BID for UTI for 10 Days, #20 TAB 0 Refills Prov: BROOKLYNN BOO MD 10/31/20 Naproxen (NAPROXEN) 500 Mg Tablet 1 TAB PO BID PRN for PAIN for 30 Days, #20 TAB 0 Refills Prov: BROOKLYNN BOO MD 10/31/20 BROOKLYNN BOO MD Oct 30, 2020 23:11
[2020-10-30 23:30] LABS: BASO # 0.1 x10^3/uL (0.0-0.2); BASO % 1 % (0-3); EOS # 0.2 x10^3/uL (0.0-0.7); EOS % 2 % (0-3); HEMATOCRIT 45.8 % (39.0-53.0); HEMOGLOBIN 15.9 g/dL (13.0-17.5); LYMPH # 4.4 x10^3/uL (1.0-4.8); LYMPH % 38 % (24-48); MEAN CORPUSCULAR HEMOGLOBIN 29 pg (25-35); MEAN CORPUSCULAR HGB CONC 35 g/dL (31-37); MEAN CORPUSCULAR VOLUME 83 fL (79-100); MONO # 0.8 x10^3/uL (0.0-1.1); MONO % 7 % (0-9); NEUT # 6.1 x10^3uL (1.8-7.7); NEUT % 52 % (31-73); PLATELET COUNT 188 x10^3/uL (140-400); RED BLOOD COUNT 5.51 x10^6/uL (4.30-5.70); RED CELL DISTRIBUTION WIDTH 13.8 % (11.5-14.5); WHITE BLOOD COUNT 11.6 x10^3/uL (4.0-11.0)
[2020-10-30] MEDS ORDERED: HYDROcodone/APAP 5/325MG 1 TAB TABLET PO ONE (23:30)
[2020-10-30 23:39] LABS: GFR 75.7; POTASSIUM 3.9 mmol/L (3.5-5.1)
[2020-10-30 23:40] LABS: BACTERIA,URINE 0 /HPF (0-FEW); BILIRUBIN,URINE SMALL (NEG); CLARITY,URINE CLEAR; COLOR,URINE YELLOW; GLUCOSE,URINE NEG (NEG); NITRITE,URINE POS (NEG); RBC,URINE RARE /HPF (0-2); SQUAMOUS EPITHELIAL CELL,UR FEW /LPF
[2020-10-30 23:46] LABS: ALBUMIN 3.8 g/dL (3.4-5.0); ALBUMIN/GLOBULIN RATIO 0.9 (1.0-1.7); TOTAL BILIRUBIN 1.4 mg/dL (0.2-1.0); TOTAL PROTEIN 8.1 g/dL (6.4-8.2)
--- NOTE | 2020-10-31 00:40 | RAD ---
EXAM: CT ABDOMEN/PELVIS WITHOUT CONTRAST. HISTORY: Lower abdominal pain. TECHNIQUE: Computed tomography of the abdomen and pelvis was performed without intravenous contrast. One or more of the following individualized dose reduction techniques were utilized for this examinat ion: 1. Automated exposure control. 2. Adjustment of the mA and/or kV according to patient size. 3. Use of iterative reconstruction technique. COMPARISON: 07/09/2020. FINDINGS: Lung windows through the visualized portions of the bases reveal mild atelectasis. Bone win dows reveal no suspicious lesions. Lumbar central canal stenosis is up to moderate/severe at L4-5, wh ere there is slight grade 1 anterolisthesis. The spleen measures 14.2 cm. A cyst in hepatic segment 8 appears benign and measures 1.6 cm. The gall bladder is surgically absent. Calcifications throughout the pancreas are consistent with chronic panc reatitis. A cyst in the left interpolar region measures 18 mm. There are 3 mm calculi in both kidneys. There ar e no ureteral calculi. The adrenal glands are unremarkable. There are no pathologically enlarged lymph nodes. The prostate measures 5.5 x 4.5 cm, moderately enla rged. The bladder is decompressed but demonstrates some wall thickening. Sigmoid diverticulosis is mi ld. The appendix is not inflamed. There is no small bowel obstruction. IMPRESSION: 1. Bilateral renal calculi measure 3 mm. No ureteral calculi. 2. The bladder is decompressed but demonstrates mild wall thickening. Correlate with urinalysis. Mode rate benign prostatic hypertrophy. 3. Moderate to severe lumbar central canal stenosis. 4. Mild splenomegaly. 5. Chronic pancreatitis. Electronically signed by: Sherri Ackerman MD (10/31/2020 12:38 AM) [facility]
--- NOTE | 2020-10-31 01:19 | RAD ---
EXAM: Left lower extremity venous Doppler. HISTORY: Left lower extremity pain/swelling. History of deep venous thrombosis. COMPARISON: None. FINDINGS: Grayscale and Doppler analysis of the left lower extremity deep venous system was performed with graded compression and augmentation. The common femoral, greater saphenous, superficial femoral , popliteal and calf veins were assessed. There is no evidence of deep venous thrombosis. IMPRESSION: 1. No evidence of deep venous thrombosis. Electronically signed by: Sherri Ackerman MD (10/31/2020 1:16 AM) [facility]
--- NOTE | 2020-10-31 02:22 | RAD ---
EXAM: SCROTAL SONOGRAM WITH DOPPLER. HISTORY: Left testicular pain. COMPARISON: 05/01/2020. FINDINGS: Grayscale and Doppler analysis of the scrotum and contents was performed. The right testicle measures 4.1 x 3.4 x 2.2 cm. An anechoic cyst along the periphery of the testicle measures 1.4 x 1.2 x 0.8 cm. No solid component is identified. The epididymis appears normal. Interna l flow is normal. There is a small hydrocele. Pampiniform plexus radicles measure up to 3 mm. The left testicle measures 3.3 x 3.2 x 1.8 cm. The parenchyma is homogeneous without focal lesions. T he epididymis appears normal. Internal flow is normal. There is no hydrocele. Left pampiniform plexus radicles measure up to 3 mm. IMPRESSION: 1. A 1.4 x 1.2 cm right testicular cyst is stable and is likely benign. 2. Small bilateral varicoceles. Electronically signed by: Sherri Ackerman MD (10/31/2020 2:20 AM) [facility]
[2020-10-31] MEDS ORDERED: NAPR-514 PO (02:40)
[2020-10-31] MEDS ORDERED: CEFU500T46 PO (02:40)
[2020-10-31 03:04] VITALS: BP 163/96
== END 2020-10-31 03:04 | disposition home or self-care (01) ==
LOC: ER 20:44
DX: N12 Tubulo-interstitial nephritis, not specified as acute or chronic (principal); N20.0 Calculus of kidney; I83.813 Varicose veins of bilateral lower extremities with pain; M19.90 Unspecified osteoarthritis, unspecified site; E11.9 Type 2 diabetes mellitus without complications; E78.00 Pure hypercholesterolemia, unspecified; I10 Essential (primary) hypertension; Z86.718 Personal history of other venous thrombosis and embolism; Z90.49 Acquired absence of other specified parts of digestive tract
CPT/HCPCS: 36415; 74176; 76870; 80053; 81001; 85025; 87086; 93971; 99285

== ENCOUNTER 2021-02-22 09:45 | Emergency (ER) | payer OTHER, MEDICARE ==
[~2021-02-22] VITALS: Ht 167.6 cm; Wt 104.0 kg
[~2021-02-22 09:45] MED LIST changes: +CEFU500T46 PO; +NAPR-514 PO
[2021-02-22] MEDS ORDERED: HYDROcodone/APAP 5/325MG 1 TAB TABLET PO ONE (10:15)
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
[2021-02-22] MEDS ORDERED: CYCL5TAB PO (11:03)
[2021-02-22 11:49] VITALS: BP 153/81
== END 2021-02-22 11:51 | disposition home or self-care (01) ==
LOC: ER 09:45
DX: S16.1XXA Strain of muscle, fascia and tendon at neck level, initial encounter (principal); R51.9 Headache, unspecified; M19.90 Unspecified osteoarthritis, unspecified site; E11.9 Type 2 diabetes mellitus without complications; Z86.718 Personal history of other venous thrombosis and embolism; E78.00 Pure hypercholesterolemia, unspecified; I10 Essential (primary) hypertension; V89.2XXA Person injured in unspecified motor-vehicle accident, traffic, initial encounter; Y93.89 Activity, other specified; Y92.89 Other specified places as the place of occurrence of the external cause; Y99.8 Other external cause status
CPT/HCPCS: 70450; 72125; 99284

== ENCOUNTER → 2021-05-08 | Day surgery (SDC) | payer OTHER ==
[~2021-05-08] MED LIST changes: +AMLO-187 PO; +BUPIVACAINE-EPI 0.25%-1:200000 MPF 30 ML VIAL. ONE; +CYCL5TAB PO; +GLIP10TA13 PO; +INSU100I13 SQ; +PIOG45TA40 PO
--- NOTE | 2021-05-08 08:33 | PDOC4 ---
Operative Report DATE May 082021 at 8:31 AM Preop Diagnosis Right upper back mass Post-op Diagnosis Same Operation Performed Excision of right upper back mass Patient is 61-year-old male with complaints of a mass on his upper back that is been draining on occasion. Procedure of excision was explained to the patient detail risk-benefit were also discussed occluding bleeding infection alternatives this procedure also discussed with the patient he seemed understand and gave a verbal written consent to have the procedure performed. Patient was taken to the minor's room placed in the prone positioning his upper back was prepped and draped usual sterile fashion using ChloraPrep. Area around the mass was injected with quarter percent Marcaine with epinephrine elliptical incision around the mass was made with a 15 blade scalpel and the mass was excised sharply the mass size was 3 cm with no margin that appeared to be a benign sebaceous cyst. The wound was then closed in 2 layers of deep layer running 3-0 Vicryl and the skin was reapproximated for subcuticular Monocryl Mastisol Steri- Strips and island dressings were applied. Patient tolerated procedure well was discharged home in stable condition Surgeon Hesham ANESTHESIA PROPOSED: LOCAL Blood Loss 5 mL IV Fluid None Specimen Right upper back mass Complications None MARTINA FRITZ MD May 08, 2021 08:33
--- NOTE | 2021-05-08 08:35 | DISCH ---
DISCHARGE INSTRUCTIONS-DC Condition on Discharge Condition on Discharge: Stable Activity after Discharge Activity Instructions for Disc: Activity as tolerated Diet after Discharge Diet after Discharge: Regular Wound/Incision Care Other wound/incision instructi: Yancy shower in 24 hours Contacting the [facility] after DC Call your doctor for: If your condition worsens Follow-Up Follow up with: Dr. Fritz in 2 weeks MARTINA FRITZ MD May 08, 2021 08:35
[2021-05-08 08:44] VITALS: BP 125/81
--- NOTE | 2021-05-13 15:07 | PATHOLOGY ---
[facility] Accession Number: [id number] . 01 Material submitted: . back - SEBACEOUS CYST RIGHT UPPER BACK. Modifiers: right, upper . 01 Clinical history: . EXCISION OF SEBACEOUS CYST . 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 (JPM:shooter helper; 05/10/2021) [facility] 05/10/2021 1400 Local . 02 Comment: Sections of the right upper back excision reveal an invasive, moderately-well differentiated keratinizing squamous cell carcinoma involving the dermis. The tumor is from the overlying epidermis by a zone of chronically inflamed dermis. Tumor is present at the side and deep histologic margins of the specimen. It is possible that the neoplasm is arising from an epidermal inclusion cyst. The results are called to Dr. Dahl on 05/13/21 at 2:25 PM. (JPM:shooter helper; 05/10/2021) . 02 Electronically signed: . Bala Brandt MD, Pathologist NPI- [id number] . 01 Gross description: . The specimen is received in formalin, labeled "Quang Porter, sebaceous cyst R upper back". Received is an ellipse of pale jackson-castro skin with a previously disrupted attached underlying soft tissue measuring 3.0 x 1.2 x 1.1 cm in greatest dimension. Sectioning reveals light jackson-white to dark brown cut surfaces. [employer] sections are submitted in cassette A1.([facility]; 05/09/2021) . Upon initial microscopic inspection of the specimen, the remainder of the tissue submitted in cassettes A2 to A4.([facility]; 05/10/2021) [facility] 05/10/2021 1531 Local . 02 Pathologist provided ICD-10: C44.529 . 02 CPT . 505342 Specimen Comment: A courtesy copy of this report has been sent to [phone], [phone] Specimen Comment: [id number] Specimen Comment: Report sent to / DR HERNANDEZ Performed at: 01 [facility] [address], [place] [id number] MD Delonte Vallecillo MD Phone: [phone] Performed at: 02 [facility] [address] [place], [place] [id number] MD Bala Brandt MD Phone: [phone]
== END | disposition home or self-care (01) ==
LOC: SURG 07:01
PROVIDERS: ATTEND Surgery
DX: R22.2 Localized swelling, mass and lump, trunk (principal); C44.529 Squamous cell carcinoma of skin of other part of trunk; L72.3 Sebaceous cyst; E78.00 Pure hypercholesterolemia, unspecified; E66.9 Obesity, unspecified; K21.9 Gastro-esophageal reflux disease without esophagitis; M19.90 Unspecified osteoarthritis, unspecified site; E11.65 Type 2 diabetes mellitus with hyperglycemia; E11.42 Type 2 diabetes mellitus with diabetic polyneuropathy; F41.9 Anxiety disorder, unspecified; F32.9 Major depressive disorder, single episode, unspecified; Z82.49 Family history of ischemic heart disease and other diseases of the circulatory system; Z79.899 Other long term (current) drug therapy; Z79.84 Long term (current) use of oral hypoglycemic drugs; Z79.4 Long term (current) use of insulin; Z98.890 Other specified postprocedural states; Z87.440 Personal history of urinary (tract) infections; Z82.3 Family history of stroke; Z83.3 Family history of diabetes mellitus; Z90.49 Acquired absence of other specified parts of digestive tract; Z85.46 Personal history of malignant neoplasm of prostate; Z86.718 Personal history of other venous thrombosis and embolism; Z98.41 Cataract extraction status, right eye; Z98.42 Cataract extraction status, left eye
CPT/HCPCS: 11603; 12032; 82947; J3490